=== PATIENT | male | born 1955 | race Caucasian/White ===

== ENCOUNTER 2020-02-09 01:00 | Outpatient (CLI) | payer BC, SELFPAY ==
[2020-02-09 19:09] LABS: SARS-CoV-2 RNA PCR Negative
== END 2020-02-09 01:01 | disposition home or self-care (01) ==
PROVIDERS: PCP Family Medicine; Visit Provider Internal Medicine Gastroenterology
DX: Z01.812 Encounter for preprocedural laboratory examination (principal); Z11.59 Encounter for screening for other viral diseases
CPT/HCPCS: 87635; C9803; U0003

== ENCOUNTER 2020-02-11 01:41 | Day surgery (SDC) | payer BC, SELFPAY ==
[2020-02-04 12:43] VITALS: BMI 29.9
[2020-02-11 10:40] VITALS: BP 157/91; PULSE 84; RESP 22; TEMP 36.5; O2SAT 97; BMI 30.4
[2020-02-11] MEDS: LACTATED RINGERS 1,000 ML 150 ML IV CONT (10:58)
--- NOTE | 2020-02-11 11:04 | WPDANESEPPF ---
Anes - Initial Pre Proc Eval Procedure: Operation Date: 02/11/20 12:00 Proposed Procedures p Screening Colonoscopy - Abhay James MD Date/Time: 02/11/20 11:04 Surgeon: Abhay James MD Pre Op Diagnosis: neoplasm screening Patient Data Age: 64 Gender: M Height: 6 ft Weight: 101.8 kg Last Vital Signs Temp 97.7 F 02/11/20 10:40 Pulse 84 02/11/20 10:40 Resp 22 H 02/11/20 10:40 BP 157/91 H 02/11/20 10:40 Pulse Ox 97 02/11/20 10:40 Allergies Allergy/AdvReac Type Severity Reaction Status Date / Time No Known Allergies Allergy Verified 02/11/20 10:39 Home Medications Medication Instructions Recorded Confirmed Type No Home Medications 02/04/20 02/11/20 History Patient hx anesthesia problems: none Family hx anesthesia problems: none PMFSH Past Medical History Medical History (Updated 02/11/20 @ 11:04 by Darion Mercado MD) Healthy adult Anes - Eval Final PreProcedure Day of Procedure 02/11/20 11:04 Patient weight: normal Heart: regular rate and rhythm Lungs: clear to auscultation Airway: Mallampati scale class II Neurological: alert and oriented Last oral intake: >/= 8 hours ASA classification: I Emergent: no Anesthetic plan: proceed Anesthesia type and monitoring: general GIVS and standard monitoring Informed Consent: The patient's anesthetic plan and its attendant risks and benefits were discussed with the patient/family/POA. Questions were solicited and answers provided to the satisfaction of the patient/family/POA.
--- NOTE | 2020-02-11 11:21 | PM.HPGS ---
History of Present Illness History of Present Illness Consent: Risks, benefits, and alternatives have been discussed and questions answered. Patient agrees to proceed with procedure. Chief complaint: neoplasm screening Narrative: Myra Callaway is a 64 year old W male referred for his 1st screening colonoscopy. Patient is asymptomatic. He has a family history of colon cancer in father diagnosed around age 90 and there is a paternal uncle colon cancer. [facility] Past Medical History Medical History Healthy adult Meds Home Medications and Allergies Home Medications Medication Instructions Recorded Confirmed Type No Home Medications 02/04/20 02/11/20 History Allergies Allergy/AdvReac Type Severity Reaction Status Date / Time No Known Allergies Allergy Verified 02/11/20 10:39 Vital Signs Vital Signs - 24 hr 02/11/20 10:40 Temperature 36.5 C Pulse Rate 84 Respiratory Rate 22 H Blood Pressure 157/91 H Pulse Oximetry 97 Exam Const: Orientation/consciousness: patient oriented x3 Resp: Auscultation: clear to auscultation bilaterally Cardio: Rate: regular rate Rhythm: regular rhythm Heart sounds: no murmurs GI: GI Palp: Yes Soft to palpation, No Tenderness to palpation present (GI), Yes No hepatosplenomegaly present and No Palpable mass present Auscultation: normal bowel sounds Neuro: General: patient oriented x3 and no focal motor deficits Extrem: General: no pedal edema Assessment and Plan Additional Plan screening colonoscopy in high risk patient
[2020-02-11 12:23] VITALS: BP 140/69; PULSE 73; RESP 18; O2SAT 99
[2020-02-11 12:33] VITALS: BP 132/75; PULSE 66; RESP 18; O2SAT 98
[2020-02-11 12:42] VITALS: BP 133/74; PULSE 72; RESP 18; O2SAT 98
== END 2020-02-11 12:51 | disposition home or self-care (01) ==
PROVIDERS: PCP Family Medicine; Visit Provider Internal Medicine Gastroenterology
PROC: 0DJD8ZZ Inspection of Lower Intestinal Tract, Via Natural or Artificial Opening Endoscopic (ICD-10-PCS; CPT 45378; principal; 2020-02-11 12:00)
DX: Z12.11 Encounter for screening for malignant neoplasm of colon (principal); Z80.0 Family history of malignant neoplasm of digestive organs; K64.4 Residual hemorrhoidal skin tags
CPT/HCPCS: G0105; J2704; J7120

== ENCOUNTER 2020-02-24 13:45 | Outpatient (CLI) | payer BC, SELFPAY ==
--- NOTE | ~2020-02-24 | XR_ITS ---
EXAMINATION: XR chest 2V 02/24/2020 15:43 INDICATION: Chest pain. PROCEDURE: 2 view chest COMPARISON: No prior studies for comparison. FINDINGS: The lungs are clear. The cardiomediastinal silhouette is within normal limits. There are no pleural effusions. There is no pneumothorax suspected. IMPRESSION: 1: NO ACUTE CARDIOPULMONARY DISEASE. Reviewed, dictated and finalized at location A.
--- NOTE | ~2020-02-24 | XR_ITS ---
XR shoulder RT min 2V 02/24/2020 15:43 Indication: Right shoulder pain Procedure: 4 views right shoulder Comparison: No prior studies for comparison. Findings: No fracture, subluxation or dislocation. Mild degenerative changes of the acromioclavicular joint. Visualized lung parenchyma unremarkable. No significant soft tissue abnormality. Impression: 1: Mild osteoarthritis of the acromioclavicular joint. Reviewed, dictated and finalized at location A. Impression: 1: Mild osteoarthritis of the acromioclavicular joint.
[2020-02-24 15:02] LABS: Basophils Absolute Auto 0.1 K/mm3 (0.0-0.1); Basophils Percent Auto 0.8 % (0.2-1.2); Eosinophils Absolute Auto 0.1 K/mm3 (0-0.3); Eosinophils Percent Auto 2.4 % (0-4.4); Hematocrit 44.5 % (42.0-52.0); Hemoglobin 15.3 g/dL (14.0-18.0); Immature Granulocyte Absolute 0.02 K/mm3 (0.00-0.031); Immature Granulocyte Percent A 0.3 % (0-0.5); Lymphocytes Absolute Auto 1.41 K/mm3 (0.9-3.2); Lymphocytes Percent Auto 23.9 % (18.3-44.2); Mean Corpuscular HGB Conc 34.4 g/dl (32-36); Mean Corpuscular Hemoglobin 30.3 pg (26-34); Mean Corpuscular Volume 88.1 fl (80-100); Mean Platelet Volume 9.8 fl (7.4-10.4); Monocytes Absolute Auto 0.4 K/mm3 (0.1-0.6); Monocytes Percent Auto 7.3 % (2.6-8.5); Neutrophils Absolute Auto 3.9 K/mm3 (1.3-6.7); Neutrophils Percent Auto 65.3 % (45.5-73.1); Platelet Count Result 244 k/mm3 (150-375); Red Blood Count 5.05 M/mm3 (4.6-6.20); Red Cell Distribution Width 13.5 % (11.5-14.5); White Blood Count 5.9 K/mm3 (4.5-10.0)
[2020-02-24 15:05] LABS: Add Urine Microscopic? NO; Appearance Urine Clear (Clear); Bilirubin Urine Negative (Negative); Blood Urine Negative (Negative); Color Urine Straw (Yellow); Glucose Urine UA Negative (Negative); Ketones Urine Negative (Negative); Leukocyte Esterase Ur Negative LEU/UL (NEGATIVE); Nitrate Urine Negative (Negative); Protein Urine Negative (Negative); Specific Grav Ur 1.011 (1.001-1.035); Urobilinogen Urine Negative mg/dL (<2.0)
[2020-02-24 15:17] LABS: Alanine Aminotransferase 38 U/L (4-50); Albumin Level 4.5 g/dL (3.5-5.1); Alkaline Phosphatase 70 U/L (38-126); Aspartate Amino Transferase 36 U/L (17-59); Bilirubin,Total 0.4 mg/dL (0.2-1.3); Blood Urea Nitrogen 13 mg/dL (9-20); Calcium 8.6 mg/dL (8.4-10.2); Carbon Dioxide 26 mmol/L (22-30); Chloride 105 mmol/L (98-107); Cholesterol 208 mg/dL (0-200); Estimated Glomerular Filt Rate > 60; Glucose 107 mg/dL (75-110); HDL Direct 51 mg/dL; Sodium 137 mmol/L (137-145); Triglycerides 185 mg/dL (<150)
[2020-02-24 15:29] LABS: LDL Cholesterol Direct 126 mg/dL
[2020-02-24 15:49] LABS: Prostate Specific Antigen 2.9 ng/mL (< OR = 4.0)
[2020-02-25 13:51] LABS: Hemoglobin A1C 5.5 % (<5.7)
== END 2020-02-24 13:46 | disposition home or self-care (01) ==
PROVIDERS: Visit Provider Physician Assistant
DX: Z00.00 Encounter for general adult medical examination without abnormal findings (principal); R35.1 Nocturia; I10 Essential (primary) hypertension; M19.011 Primary osteoarthritis, right shoulder
CPT/HCPCS: 36415; 71046; 73030; 80053; 80061; 81003; 83036; 84153; 84443; 85025; G0103

== ENCOUNTER 2020-10-11 13:35 | Outpatient (CLI) | payer BC, SELFPAY ==
[2020-10-11 14:16] LABS: Basophils Absolute Auto 0.1 K/mm3 (0.0-0.1); Basophils Percent Auto 0.9 % (0.2-1.2); Eosinophils Absolute Auto 0.1 K/mm3 (0-0.3); Eosinophils Percent Auto 1.7 % (0-4.4); Hematocrit 43.2 % (42.0-52.0); Hemoglobin 14.7 g/dL (14.0-18.0); Immature Granulocyte Absolute 0.02 K/mm3 (0.00-0.031); Immature Granulocyte Percent A 0.4 % (0-0.5); Lymphocytes Absolute Auto 1.39 K/mm3 (0.9-3.2); Lymphocytes Percent Auto 25.9 % (18.3-44.2); Mean Corpuscular Hemoglobin 29.5 pg (26-34); Mean Corpuscular Volume 86.7 fl (80-100); Mean Platelet Volume 9.6 fl (7.4-10.4); Monocytes Absolute Auto 0.5 K/mm3 (0.1-0.6); Monocytes Percent Auto 8.6 % (2.6-8.5); Neutrophils Absolute Auto 3.4 K/mm3 (1.3-6.7); Neutrophils Percent Auto 62.5 % (45.5-73.1); Platelet Count Result 227 k/mm3 (150-375); Red Blood Count 4.98 M/mm3 (4.6-6.20); Red Cell Distribution Width 13.3 % (11.5-14.5); White Blood Count 5.4 K/mm3 (4.5-10.0)
[2020-10-11 14:27] LABS: Hemoglobin A1C 5.5 % (<5.7)
[2020-10-11 14:45] LABS: Alanine Aminotransferase 36 U/L (4-50); Albumin Level 4.3 g/dL (3.5-5.1); Alkaline Phosphatase 81 U/L (38-126); Anion Gap 5 mmol/L (8-16); Aspartate Amino Transferase 32 U/L (17-59); Bilirubin,Total 0.4 mg/dL (0.2-1.3); Blood Urea Nitrogen 13 mg/dL (9-20); Calcium 9.4 mg/dL (8.4-10.2); Carbon Dioxide 27 mmol/L (22-30); Chloride 107 mmol/L (98-107); Cholesterol 183 mg/dL (0-200); Estimated Glomerular Filt Rate > 60; Glucose 107 mg/dL (75-110); HDL Direct 45 mg/dL; Potassium 4.1 mmol/L (3.4-5.0); Sodium 139 mmol/L (137-145); Triglycerides 152 mg/dL (<150)
[2020-10-11 14:56] LABS: LDL Cholesterol Direct 114 mg/dL
[2020-10-11 15:48] LABS: Folic Acid 8.5 ng/mL (2.76->20)
== END 2020-10-11 13:36 | disposition home or self-care (01) ==
PROVIDERS: PCP Family Medicine; Visit Provider Physician Assistant
DX: E78.5 Hyperlipidemia, unspecified (principal); I10 Essential (primary) hypertension; R07.89 Other chest pain; R53.83 Other fatigue; R73.01 Impaired fasting glucose
CPT/HCPCS: 36415; 80053; 80061; 82607; 82746; 83036; 84443; 85025

== ENCOUNTER 2021-04-10 10:03 | Outpatient (CLI) | payer BC, SELFPAY ==
--- NOTE | ~2021-04-10 | CT_ITS ---
EXAMINATION: CT sinus wo con DATE: 04/10/2021 10:24 INDICATION: Chronic sinusitis TECHNIQUE: Computed tomography (CT) of the paranasal sinuses was performed without contrast. Iterativ e reconstruction technique was employed. Exam dose: 308.46 mGy-cm total exam DLP. COMPARISON: None FINDINGS: There is leftward deviation of the nasal septum. The nasal turbinates are prominent in size, relatively symmetric. The ostiomeatal units are patent. There is mild soft tissue thickening of the ethmoid septae. There is minimal mucoperiosteal thickenin g along the medial wall of left maxillary antrum. There is opacification of a small number of inferomedial left mastoid air cells. The paranasal sinuses and mastoid air cells are otherwise normally developed and aerated. IMPRESSION: Leftward deviation of nasal septum Prominent nasal turbinates Patent ostiomeatal units Mild septal soft tissue thickening of the ethmoid septae, minimal mucoperiosteal thickening of the le ft maxillary sinus medially Reviewed, dictated and finalized at Location A. Reviewed, dictated and finalized at location A. IMPRESSION: Leftward deviation of nasal septum Prominent nasal turbinates Patent ostiomeatal units Mild septal soft tissue thickening of the ethmoid septae, minimal mucoperiostea l thickening of the left maxillary sinus medially
== END 2021-04-10 10:04 | disposition home or self-care (01) ==
LOC: ANHIMG 10:08
PROVIDERS: PCP Family Medicine; Visit Provider Otolaryngology
DX: J32.9 Chronic sinusitis, unspecified (principal); J34.2 Deviated nasal septum; J33.8 Other polyp of sinus; J30.9 Allergic rhinitis, unspecified
CPT/HCPCS: 70486

== ENCOUNTER 2021-05-11 02:31 | Day surgery (SDC) | payer BC, SELFPAY ==
[2021-05-02 13:29] VITALS: BMI 28.7
--- NOTE | 2021-05-09 06:27 | PM.HPGS ---
History of Present Illness History of Present Illness Consent: Risks, benefits, and alternatives have been discussed and questions answered. Patient agrees to proceed with procedure. Chief complaint: Nasal Septal Deviation, Hypertrophy Narrative: Myra Callaway is a 65 year old male with inability to breathe out of his nose left side is markedly deviated he has been on antibiotics and sinus medications difficulty sleeping at night Review of Systems Review of Systems: All systems reviewed & are unremarkable except as noted in HPI and below PMFSH Past Medical History Medical History Healthy adult Surgical History Surgical History History of lumbar surgery L5 Family History Family History Father Heart disease Hypertension Mother Pancreatic cancer Social History Social History Years smoked: 30 Smoking status: Current some day smoker Tobacco type: cigars Second hand tobacco smoke exposure: No Additional smoking assessment comments: OCCAS CIGAR W/ GOLFING FOR 20 YRS Alcohol intake: former Drinks per week: 2 Alcohol use details: FORMER SOCIAL Substance use: never Substance use type: does not use Living arrangements: alone Gender identity (if verbalized by the patient): Male Spiritual care concerns: No Meds Home Medications and Allergies Home Medications Medication Instructions Recorded Confirmed Type lisinopril 20 mg tablet 20 mg PO QAM #90 tablet 05/08/21 Rx omeprazole 40 mg capsule,delayed 40 mg PO QAM PRN #90 cap 05/08/21 Rx release Allergies Allergy/AdvReac Type Severity Reaction Status Date / Time No Known Allergies Allergy Verified 05/02/21 13:26 Exam Narrative: chest clear heart without murmurs abdomen soft extremities negative septum deviated to the left turbinate hypertrophy Assessment and Plan Additional Plan plan septoplasty and bilateral inferi
[2021-05-11] VITALS (9 sets, daily range): BP systolic 110–139; BP diastolic 66–91; PULSE 65–84; RESP 12–20; TEMP 36.2–36.4; O2SAT 93–98; BMI 28.7
[2021-05-11] MEDS: ACETAMINOPHEN 500 MG TABLET 1000 MG PO (09:32)
[2021-05-11] MEDS: LACTATED RINGERS 1,000 ML 30 ML IV CONT (09:53)
--- NOTE | 2021-05-11 10:46 | WPDANESEPPF ---
Anes - Initial Pre Proc Eval Procedure: Operation Date: 05/11/21 11:00 Proposed Procedures p Septoplasty - Shahzad Goldman MD s Bilateral Inferior Turbinectomy - Shahzad Goldman MD Date/Time: 05/11/21 10:46 Surgeon: Shahzad Goldman MD Pre Op Diagnosis: Nasal Septal Deviation, Hypertrophy Patient Data Age: 65 Gender: M Height: 1.83 m Weight: 96 kg Last Vital Signs Temp 36.4 C 05/11/21 09:36 Pulse 76 05/11/21 09:36 Resp 18 05/11/21 09:36 BP 139/91 H 05/11/21 09:36 Pulse Ox 98 05/11/21 09:36 Allergies Allergy/AdvReac Type Severity Reaction Status Date / Time No Known Allergies Allergy Verified 05/11/21 09:21 Home Medications Medication Instructions Recorded Confirmed Type lisinopril 20 mg tablet 20 mg PO QAM #90 tablet 05/08/21 05/11/21 Rx omeprazole 40 mg capsule,delayed 40 mg PO QAM PRN #90 cap 05/08/21 05/11/21 Rx release Patient hx anesthesia problems: none Family hx anesthesia problems: none Results Review: All pre-operative results and documents have been reviewed as part of the pre-operative evaluation. [facility] Past Medical History Medical History GERD (gastroesophageal reflux disease) Healthy adult HLD (hyperlipidemia) HTN (hypertension) Suspected sleep apnea Surgical History Surgical History History of lumbar surgery L5 Family History Family History Father Heart disease Hypertension Mother Pancreatic cancer Social History Social History Years smoked: 30 Smoking status: Current some day smoker Tobacco type: cigars Second hand tobacco smoke exposure: No Additional smoking assessment comments: OCCAS CIGAR W/ GOLFING FOR 20 YRS Alcohol intake: former Drinks per week: 2 Alcohol use details: FORMER SOCIAL Substance use: never Substance use type: does not use Living arrangements: alone Gender identity (if verbalized by the patient): Male Spiritual care concerns: No Anes - Eval Final PreProcedure Day of Procedure 05/11/21 10:46 Patient weight: overweight Heart: regular rate and rhythm Lungs: clear to auscultation Airway: Mallampati scale class II Neurological: alert and oriented Last oral intake: >/= 8 hours ASA classification: III Emergent: no Anesthetic plan: proceed Anesthesia type and monitoring: general ETT and standard monitoring Results Review: All pre-operative results and documents have been reviewed as part of the pre-operative evaluation. Informed Consent: The patient's anesthetic plan and its attendant risks and benefits were discussed with the patient/family/POA. Questions were solicited and answers provided to the satisfaction of the patient/family/POA.
--- NOTE | 2021-05-11 10:56 | WPDHPUPDATE1 ---
History and Physical Update Update Date/Time: 05/11/21 10:56 History and Physical has been reviewed, including an updated exam of the patient. There are NO changes in the patient's condition. Risks, benefits, and alternatives have been discussed and questions answered. Patient agrees to proceed with procedure.
[2021-05-11] MEDS: LIDO 1%/EPINEPHRINE 1:100,000 50 ML VIAL INFILTRATE (11:13)
[2021-05-11] MEDS: COCAINE HCL (*CRX) 4% TOP SOLN 4 ML VIAL 1 APPLIC TOPICAL (11:13)
--- NOTE | 2021-05-11 11:36 | W.PM.PROC2 ---
Procedure Note - Detailed Date of Procedure 05/11/21 Pre-op Diagnosis Nasal Septal Deviation, Hypertrophy Post-op Diagnosis same Procedure Performed Septoplasty and bilateral inferior turbinectomy Surgeon Shahzad Goldman MD Description of Procedure Patient was prepped and draped fashion anesthesia the nose packed with cocaine impregnated cottonoids injected xylocaine with adrenaline a right cintia transfix incision was made left anterior and posterior tunnels elevated the bony cartilaginous junction the right posterior elevated the bony deviation was removed as tolerated this swelling the cartilage before bony remnants of the midline a small strip of septal cartilage removal of the caudal septum both inferior turbinates were reduced in size with stab wounds in the anterior ends removal of the bone and micro debriding soft tissue incision closed with 4-0 chromic and Yeung splints sutured
== END 2021-05-11 13:30 | disposition home or self-care (01) ==
PROVIDERS: PCP Family Medicine; Visit Provider Otolaryngology
PROC: (CPT 30520; principal; 2021-05-11 11:00)
PROC: (CPT 30140; 2021-05-11 11:00)
DX: J34.2 Deviated nasal septum (principal); J34.3 Hypertrophy of nasal turbinates; I10 Essential (primary) hypertension; E78.5 Hyperlipidemia, unspecified; K21.9 Gastro-esophageal reflux disease without esophagitis; Z72.0 Tobacco use
CPT/HCPCS: 30140; 30520; A9270; J0330; J1100; J2250; J2405; J2704; J7120

== ENCOUNTER 2021-08-13 11:13 | Emergency (ER) | payer OTHER, SELFPAY ==
--- NOTE | ~2021-08-13 | CT_ITS ---
EXAMINATION: CT abdomen pelvis wo con DATE: 08/13/2021 11:47 INDICATION: Right flank pain. Nausea and vomiting. TECHNIQUE: Computed tomography (CT) of the abdomen and pelvis was performed without intravenous contr ast. The dose-length product was 906.19 mGy-cm. Automated exposure control and iterative reconstructi on technique were employed. COMPARISON: None. FINDINGS: Lung bases are unremarkable. Heart size is normal. No significant pleural or pericardial ef fusion. Small hiatal hernia. No significant vascular abnormality. No lymphadenopathy. The liver, sple en, pancreas, adrenal glands are unremarkable. There is a 2.5 cm left renal cyst. There are punctate nonobstructing right renal stones. There is moderate right hydroureteronephrosis. There is calcificat ion in the bladder near the UVJ, possibly recently passed stone or UVJ stone measuring 3 mm. Gallbladder is present. Nonobstructive bowel gas pattern. No abnormal pelvic masses or fluid collecti ons. There is levoscoliosis. There is mild osteoarthritis of the hips. Mild lumbar spondylosis. IMPRESSION: 1. Stone overlying the bladder measuring 3 mm which may represent a UVJ stone or recently passed blad odette stone. There is moderate resultant right hydroureteronephrosis. 2: Nonobstructing right nephrolithiasis. Reviewed, dictated and finalized at location A. PMENT WASHER IMPRESSION: 1. Stone overlying the bladder measuring 3 mm which may represent a UVJ stone o r recently passed bladder stone. There is moderate resultant right hydrouretero nephrosis. 2: Nonobstructing right nephrolithiasis.
[2021-08-13 11:17] VITALS: PULSE 58; RESP 22; TEMP 36.4; O2SAT 100
[2021-08-13] MEDS: SODIUM CHLORIDE 0.9% IV 1,000 ML 999 ML IV CONT (11:30)
[2021-08-13] MEDS: KETOROLAC 30 MG/ML VIAL (*BKC) IV PUSH (11:30)
[2021-08-13 11:44] LABS: Add Urine Microscopic? YES; Appearance Urine Turbid (Clear); Bilirubin Urine Negative (Negative); Blood Urine 2+ (Negative); Color Urine Amber (Yellow); Glucose Urine UA Negative (Negative); Ketones Urine Negative (Negative); Leukocyte Esterase Ur Negative LEU/UL (Negative); Mucus Urine Heavy /lpf; Nitrate Urine Negative (Negative); Protein Urine 1+ mg/dL (Negative)
[2021-08-13 11:47] LABS: Specific Grav Ur 1.033 (1.001-1.035)
--- NOTE | 2021-08-13 11:50 | ED.ABDPAIN ---
HPI - Abdominal Pain General Chief Complaint: Back Pain/Injury Stated Complaint: back pian, n.v, urgency Time Seen by Provider: 08/13/21 11:24 Source: patient Mode of arrival: EMS Limitations: no limitations History of Present Illness HPI narrative: Patient is a 65-year-old male complaining of right flank pain, sharp, 9 out of 10, radiating to right groin accompanied by nausea and dysuria that started this morning. Patient was given 4 mg morphine and 4 of Zofran by EMS, still having pain. Patient denies any chest pain, shortness of breath, vomiting, diarrhea, fever or chills. Related Data Allergies Allergy/AdvReac Type Severity Reaction Status Date / Time No Known Allergies Allergy Verified 06/01/21 14:33 Review of Systems Review of Systems: All systems reviewed & are unremarkable except as noted in HPI and below Constitutional: Constitutional: Denies body ache(s), Denies chills, Denies excessive sweating, Denies fatigue, Denies fever(s), Denies headache(s), Denies lethargy, Denies malaise, Denies weakness and Denies weight loss Eyes: Eyes: Denies blurry vision, Denies change in vision and Denies loss of vision ENT: Denies dizziness, Denies ear discharge, Denies headache(s), Denies lip swelling, Denies epistaxis, Denies nasal congestion, Denies neck pain, Denies throat swelling and Denies tongue swelling Cardiovascular: Cardiovascular: Denies chest pain, Denies chest pain at rest, Denies chest pain with activity, Denies diaphoresis, Denies rapid heart rate, Denies edema, Denies irregular heart rhythm, Denies lightheadedness, Denies palpitations, Denies dyspnea and Denies dyspnea on exertion Respiratory: Respiratory: Denies chest congestion, Denies cough, Denies hemoptysis, Denies dyspnea and Denies dyspnea on exertion Gastrointestinal: Gastrointestinal: Denies abdominal pain, Denies melena, Denies hematochezia, Denies diarrhea, Denies vomiting and Denies hematemesis Musculoskeletal: Musculoskeletal: Denies abnormal gait, Denies deformity, Denies joint swelling, Denies limited range of motion, Denies neck pain and Denies numbness Neurologic: Denies Abnormal speech present, Denies abnormal gait, Denies confusion, Denies dizziness, Denies headache(s), Denies focal weakness, Denies loss of vision, Denies numbness, Denies Other visual disturbances, Denies Sensory deficit (Neuro) and Denies weakness Psychiatric: Psychiatric: Denies confusion, Denies depression, Denies auditory hallucinations, Denies homicidal ideation and Denies suicidal ideation Endocrine: Endocrine: Denies cold intolerance, Denies excessive sweating, Denies fatigue, Denies heat intolerance and Denies palpitations Hematologic/Lymphatic: Hematologic/Lymphatic: Denies easy bleeding and Denies easy bruising Allergic/Immunologic: Allergic/Immunologic: Denies lip swelling, Denies throat swelling and Denies tongue swelling PMFSH Past Medical History Medical History GERD (gastroesophageal reflux disease) Healthy adult HLD (hyperlipidemia) HTN (hypertension) Suspected sleep apnea Surgical History Surgical History History of lumbar surgery L5 Family History Family History Father Heart disease Hypertension Mother Pancreatic cancer Social History Social History Years smoked: 30 Smoking status: Light tobacco smoker Tobacco type: cigars Second hand tobacco smoke exposure: No Additional smoking assessment comments: OCCAS CIGAR W/ GOLFING FOR 20 YRS Alcohol intake: former Drinks per week: 2 Alcohol use details: FORMER SOCIAL Substance use: never Substance use type: does not use Gender identity (if verbalized by the patient): Male Spiritual care concerns: No Exam Const: General: cooperative, healthy appearing, c
[2021-08-13 12:28] LABS: Hematocrit 44.6 % (42.0-52.0); Mean Corpuscular HGB Conc 33.6 g/dl (32-36); Mean Corpuscular Hemoglobin 30.6 pg (26-34); Mean Platelet Volume 9.6 fl (7.4-10.4); Platelet Count Result 214 k/mm3 (150-375); Red Cell Distribution Width 13.8 % (11.5-14.5); White Blood Count 10.4 K/mm3 (4.5-10.0)
[2021-08-13 12:38] LABS: Alanine Aminotransferase 31 U/L (4-50); Albumin Level 4.6 g/dL (3.5-5.1); Alkaline Phosphatase 83 U/L (38-126); Anion Gap 6 mmol/L (8-16); Aspartate Amino Transferase 39 U/L (17-59); Bilirubin,Total 0.3 mg/dL (0.2-1.3); Blood Urea Nitrogen 20 mg/dL (9-20); Calcium 9.1 mg/dL (8.4-10.2); Carbon Dioxide 28 mmol/L (22-30); Chloride 108 mmol/L (98-107); Estimated CRCL calculation 55 ml/min; Estimated Glomerular Filt Rate 55; Glucose 120 mg/dL (65-110); Lipase 155 U/L (23-300); Potassium 4.5 mmol/L (3.4-5.0); Sodium 142 mmol/L (137-145)
[2021-08-13 12:42] LABS: Band Neutrophils Percent 10 % (0-6); Lymphocytes Absolute Manual 0.52 K/mm3 (1.1-4.5); Monocytes Absolute Manual 0.41 K/mm3 (0.1-0.90); Monocytes Percent Manual 4 % (3-9); Neutrophils Absolute Manual 9.46 K/mm3 (1.3-6.7); Neutrophils Percent Manual 81 % (46-73); Platelet Estimate Adequate (Adequate); Total Cells Counted 100
[2021-08-13 12:56] VITALS: BP 136/89; PULSE 64; RESP 18; O2SAT 100
[2021-08-13] MEDS: TAMSULOSIN HCL 0.4 MG CAPSULE PO (13:02)
[2021-08-13 14:14] VITALS: BP 120/64; PULSE 62; RESP 17; O2SAT 99
== END 2021-08-13 14:55 | disposition home or self-care (01) ==
PROVIDERS: Physician Assistant; Emergency Provider Emergency Medicine; PCP Family Medicine
DX: N13.2 Hydronephrosis with renal and ureteral calculous obstruction (principal); K21.9 Gastro-esophageal reflux disease without esophagitis; E78.5 Hyperlipidemia, unspecified; I10 Essential (primary) hypertension; F17.290 Nicotine dependence, other tobacco product, uncomplicated
CPT/HCPCS: 36415; 74176; 80053; 81001; 83690; 85025; 87086; 96361; 96374; 99284; A9270; J1885; J7030

== ENCOUNTER 2021-09-29 14:20 | Outpatient (CLI) | payer OTHER, SELFPAY ==
[2021-09-29 14:41] LABS: Basophils Percent Auto 0.4 % (0.2-1.2); Eosinophils Absolute Auto 0.1 K/mm3 (0-0.3); Eosinophils Percent Auto 0.9 % (0-4.4); Hematocrit 41.3 % (42.0-52.0); Hemoglobin 13.9 g/dL (14.0-18.0); Immature Granulocyte Absolute 0.03 K/mm3 (0.00-0.031); Immature Granulocyte Percent A 0.4 % (0-0.5); Lymphocytes Absolute Auto 1.34 K/mm3 (0.9-3.2); Lymphocytes Percent Auto 19.2 % (18.3-44.2); Mean Corpuscular HGB Conc 33.7 g/dl (32-36); Mean Corpuscular Hemoglobin 30.6 pg (26-34); Mean Platelet Volume 9.9 fl (7.4-10.4); Monocytes Absolute Auto 0.5 K/mm3 (0.1-0.6); Monocytes Percent Auto 7.2 % (2.6-8.5); Neutrophils Percent Auto 71.9 % (45.5-73.1); Platelet Count Result 218 k/mm3 (150-375); Red Blood Count 4.54 M/mm3 (4.6-6.20)
[2021-09-29 14:50] LABS: Add Urine Microscopic? NO; Appearance Urine Clear (Clear); Bilirubin Urine Negative (Negative); Blood Urine Negative (Negative); Color Urine Straw (Yellow); Glucose Urine UA Negative (Negative); Ketones Urine Negative (Negative); Leukocyte Esterase Ur Negative LEU/UL (NEGATIVE); Nitrate Urine Negative (Negative); Protein Urine Negative (Negative); Urobilinogen Urine Negative mg/dL (<2.0)
[2021-09-29 14:58] LABS: Specific Grav Ur 1.003 (1.001-1.035)
[2021-09-29 16:39] LABS: Alanine Aminotransferase 26 U/L (4-50); Albumin Level 4.4 g/dL (3.5-5.1); Alkaline Phosphatase 66 U/L (38-126); Anion Gap 7 mmol/L (8-16); Aspartate Amino Transferase 37 U/L (17-59); Bilirubin,Total 0.4 mg/dL (0.2-1.3); Blood Urea Nitrogen 17 mg/dL (9-20); Calcium 9.2 mg/dL (8.4-10.2); Carbon Dioxide 27 mmol/L (22-30); Chloride 104 mmol/L (98-107); Cholesterol 167 mg/dL (0-200); Estimated Glomerular Filt Rate > 60; Glucose 104 mg/dL (65-110); HDL Direct 42 mg/dL; Potassium 4.2 mmol/L (3.4-5.0); Sodium 138 mmol/L (137-145); Triglycerides 72 mg/dL (<150)
[2021-09-29 16:50] LABS: LDL Cholesterol Direct 93 mg/dL
[2021-09-29 17:09] LABS: Prostate Specific Antigen 3.2 ng/mL (< OR = 4.0)
[2021-09-29 17:29] LABS: Hemoglobin A1C 5.2 % (<5.7)
== END 2021-09-29 14:21 | disposition home or self-care (01) ==
LOC: ANHLAB 14:23
PROVIDERS: PCP Family Medicine; Visit Provider Physician Assistant
DX: E78.5 Hyperlipidemia, unspecified (principal); I10 Essential (primary) hypertension; K21.9 Gastro-esophageal reflux disease without esophagitis; R35.1 Nocturia; R73.01 Impaired fasting glucose
CPT/HCPCS: 36415; 80053; 80061; 81003; 83036; 84153; 84443; 85025

== ENCOUNTER 2022-01-17 10:15 | Outpatient (CLI) | payer OTHER, SELFPAY | END 2022-01-17 10:16 | disposition home or self-care (01) | LOC: ANHAUDASC 10:16 | PROVIDERS: PCP Family Medicine; Visit Provider Otolaryngology | DX: H90.3 Sensorineural hearing loss, bilateral (principal) | CPT/HCPCS: 92557; 92567 ==

== ENCOUNTER 2022-04-20 14:43 | Outpatient (CLI) | payer OTHER, SELFPAY ==
[2022-04-20 15:01] LABS: Basophils Absolute Auto 0.1 K/mm3 (0.0-0.1); Basophils Percent Auto 0.9 % (0.2-1.2); Eosinophils Absolute Auto 0.6 K/mm3 (0-0.3); Eosinophils Percent Auto 10.1 % (0-4.4); Hematocrit 42.2 % (42.0-52.0); Hemoglobin 13.9 g/dL (14.0-18.0); Immature Granulocyte Absolute 0.01 K/mm3 (0.00-0.031); Immature Granulocyte Percent A 0.2 % (0-0.5); Lymphocytes Absolute Auto 1.52 K/mm3 (0.9-3.2); Lymphocytes Percent Auto 26.9 % (18.3-44.2); Mean Corpuscular HGB Conc 32.9 g/dl (32-36); Mean Corpuscular Hemoglobin 30.9 pg (26-34); Mean Corpuscular Volume 93.8 fl (80-100); Mean Platelet Volume 9.5 fl (7.4-10.4); Monocytes Absolute Auto 0.5 K/mm3 (0.1-0.6); Neutrophils Absolute Auto 3.1 K/mm3 (1.3-6.7); Neutrophils Percent Auto 53.9 % (45.5-73.1); Platelet Count Result 207 k/mm3 (150-375); Red Cell Distribution Width 14.3 % (11.5-14.5); White Blood Count 5.7 K/mm3 (4.5-10.0)
[2022-04-20 16:23] LABS: Folic Acid > 20.0 ng/mL (2.76->20)
[2022-04-20 16:48] LABS: Iron 97 ug/dL (49-181)
[2022-04-20 16:57] LABS: Percent Iron Saturation 30 % (20-50)
== END 2022-04-20 14:44 | disposition home or self-care (01) ==
LOC: ANHLAB 14:45
PROVIDERS: PCP Family Medicine; Visit Provider Physician Assistant
DX: D64.9 Anemia, unspecified (principal)
CPT/HCPCS: 36415; 82607; 82728; 82746; 83540; 83550; 85025

== ENCOUNTER 2022-08-07 12:44 | Outpatient (CLI) | payer OTHER, SELFPAY ==
[2022-08-07 13:16] LABS: Basophils Absolute Auto 0.1 K/mm3 (0.0-0.1); Basophils Percent Auto 1.2 % (0.2-1.2); Eosinophils Absolute Auto 0.1 K/mm3 (0-0.3); Eosinophils Percent Auto 2.2 % (0-4.4); Hematocrit 42.9 % (42.0-52.0); Immature Granulocyte Absolute 0.01 K/mm3 (0.00-0.031); Immature Granulocyte Percent A 0.2 % (0-0.5); Lymphocytes Absolute Auto 1.39 K/mm3 (0.9-3.2); Lymphocytes Percent Auto 27.8 % (18.3-44.2); Mean Corpuscular HGB Conc 32.6 g/dl (32-36); Mean Corpuscular Hemoglobin 30.8 pg (26-34); Mean Corpuscular Volume 94.3 fl (80-100); Mean Platelet Volume 9.9 fl (7.4-10.4); Monocytes Absolute Auto 0.4 K/mm3 (0.1-0.6); Monocytes Percent Auto 8.6 % (2.6-8.5); Platelet Count Result 179 k/mm3 (150-375); Red Blood Count 4.55 M/mm3 (4.6-6.20)
== END 2022-08-07 12:45 | disposition home or self-care (01) ==
PROVIDERS: PCP Family Medicine; Visit Provider Physician Assistant
DX: D64.9 Anemia, unspecified (principal)
CPT/HCPCS: 36415; 85025

== ENCOUNTER 2023-04-30 14:47 | Outpatient (CLI) | payer OTHER, SELFPAY ==
[2023-04-30 16:33] LABS: Hematocrit 42.5 % (42.0-52.0); Hemoglobin 14.2 g/dL (14.0-18.0); Mean Corpuscular HGB Conc 33.4 g/dl (32-36); Mean Corpuscular Hemoglobin 30.9 pg (26-34); Mean Corpuscular Volume 92.4 fl (80-100); Mean Platelet Volume 9.7 fl (7.4-10.4); Platelet Count Result 185 k/mm3 (150-375); Red Cell Distribution Width 13.3 % (11.5-14.5); White Blood Count 5.4 K/mm3 (4.5-10.0)
[2023-04-30 16:41] LABS: Appearance Urine Clear (Clear); Bacteria Urine None Seen /hpf; Bilirubin Urine Negative (Negative); Blood Urine Negative (Negative); Color Urine Yellow (Yellow); Glucose Urine UA Negative (Negative); Ketones Urine Negative (Negative); Leukocyte Esterase Ur Trace LEU/UL (NEGATIVE); Nitrate Urine Negative (Negative); Non Pathogenic Casts 0-2; Protein Urine Negative (Negative); RBC Urine 0-2 /hpf (0-2); Specific Grav Ur 1.024 (1.001-1.035); Squamous Epithelial Cell Urine None seen /hpf (Few); Urobilinogen Urine 0.2 mg/dL (<2.0); WBC Urine 0-5 /hpf (0-3)
[2023-04-30 16:46] LABS: Hemoglobin A1C 5.1 % (<5.7)
[2023-04-30 16:50] LABS: Add Urine Microscopic? YES
[2023-04-30 16:58] LABS: Alanine Aminotransferase 20 U/L (6-50); Albumin Level 4.1 g/dL (3.5-5.1); Alkaline Phosphatase 60 U/L (38-126); Anion Gap 3 mmol/L (8-16); Aspartate Amino Transferase 27 U/L (17-59); Bilirubin,Total 0.5 mg/dL (0.2-1.3); Blood Urea Nitrogen 16 mg/dL (9-20); Calcium 8.9 mg/dL (8.4-10.2); Carbon Dioxide 31 mmol/L (22-30); Chloride 105 mmol/L (98-107); Cholesterol 166 mg/dL (0-200); Estimated Glomerular Filt Rate > 60; Glucose 90 mg/dL (65-110); HDL Direct 63 mg/dL; Potassium 3.8 mmol/L (3.4-5.0); Sodium 139 mmol/L (137-145); Triglycerides 47 mg/dL (<150)
[2023-04-30 17:16] LABS: LDL Cholesterol Direct 85 mg/dL
== END 2023-04-30 14:48 | disposition home or self-care (01) ==
LOC: ANHLAB 14:48
PROVIDERS: PCP Family Medicine; Visit Provider Physician Assistant
DX: Z00.00 Encounter for general adult medical examination without abnormal findings (principal); I10 Essential (primary) hypertension; K21.9 Gastro-esophageal reflux disease without esophagitis; E78.5 Hyperlipidemia, unspecified; R73.01 Impaired fasting glucose; Z12.5 Encounter for screening for malignant neoplasm of prostate
CPT/HCPCS: 36415; 80053; 80061; 81001; 83036; 84153; 84443; 85027; G0103

== ENCOUNTER 2024-05-05 14:55 | Outpatient (CLI) | payer OTHER, SELFPAY ==
--- NOTE | ~2024-05-05 | XR_ITS ---
Right Hand Technique: PA, oblique, and lateral views were obtained. Clinical History: Pain Findings: No acute fracture or dislocation is seen. Osseous alignment is anatomic. There is mild dege nerative change of the first MCP joint. Minimal degenerative changes and DIP joints noted. Soft tissu es are unremarkable. Impression: Mild degenerative changes, as above. Reviewed, dictated and finalized at location M. Impression: Mild degenerative changes, as above.
--- NOTE | ~2024-05-05 | XR_ITS ---
Right Shoulder Technique: AP and scapular Y views were obtained. Clinical History: Chronic pain COMPARISON: 02/24/2020 Findings: No fracture or dislocation is seen. Osseous alignment is anatomic. The glenohumeral joint i s intact. Stable mild degenerative change at the AC joint. Soft tissues are unremarkable. Impression: Stable mild degenerative change at the AC joint. Reviewed, dictated and finalized at location . Impression: Stable mild degenerative change at the AC joint.
[2024-05-05 15:37] LABS: Basophils Percent Auto 0.8 % (0.2-1.2); Eosinophils Absolute Auto 0.1 K/mm3 (0-0.3); Eosinophils Percent Auto 1.5 % (0-4.4); Hematocrit 42.9 % (42.0-52.0); Hemoglobin 14.2 g/dL (14.0-18.0); Immature Granulocyte Absolute 0.01 K/mm3 (0.00-0.031); Immature Granulocyte Percent A 0.2 % (0-0.5); Lymphocytes Absolute Auto 1.41 K/mm3 (0.9-3.2); Lymphocytes Percent Auto 26.8 % (18.3-44.2); Mean Corpuscular HGB Conc 33.1 g/dl (32-36); Mean Corpuscular Hemoglobin 30.5 pg (26-34); Mean Corpuscular Volume 92.3 fl (80-100); Monocytes Absolute Auto 0.4 K/mm3 (0.1-0.6); Monocytes Percent Auto 7.4 % (2.6-8.5); Neutrophils Absolute Auto 3.3 K/mm3 (1.3-6.7); Neutrophils Percent Auto 63.3 % (45.5-73.1); Platelet Count Result 176 k/mm3 (150-375); Red Blood Count 4.65 M/mm3 (4.6-6.20); Red Cell Distribution Width 13.8 % (11.5-14.5); White Blood Count 5.3 K/mm3 (4.5-10.0)
[2024-05-05 15:41] LABS: Add Urine Microscopic? YES; Appearance Urine Clear (Clear); Bacteria Urine None Seen /hpf; Bilirubin Urine Negative (Negative); Blood Urine Negative (Negative); Color Urine Yellow (Yellow); Glucose Urine UA Negative (Negative); Ketones Urine 1+ mg/dL (Negative); Leukocyte Esterase Ur Trace LEU/UL (Negative); Nitrate Urine Negative (Negative); Non Pathogenic Casts 0-2; Protein Urine Negative (Negative); RBC Urine 0-2 /hpf (0-2); Specific Grav Ur 1.023 (1.001-1.035); Squamous Epithelial Cell Urine None Seen /hpf (Few); Urobilinogen Urine 0.2 mg/dL (<2.0); WBC Urine 0-5 /hpf (0-3); pH Urine 5.5 (5.0-9.0)
[2024-05-05 15:55] LABS: Alanine Aminotransferase 16 U/L (6-50); Albumin Level 4.4 g/dL (3.5-5.1); Anion Gap 6 mmol/L (4-12); Aspartate Amino Transferase 25 U/L (17-59); Bilirubin,Total 0.7 mg/dL (0.2-1.3); Blood Urea Nitrogen 14 mg/dL (9-20); Calcium 8.8 mg/dL (8.4-10.2); Carbon Dioxide 31 mmol/L (22-30); Chloride 103 mmol/L (98-107); Cholesterol 174 mg/dL (0-200); Estimated Glomerular Filt Rate > 60; Glucose 87 mg/dL (65-110); HDL Direct 57 mg/dL; Potassium 3.8 mmol/L (3.4-5.0); Sodium 140 mmol/L (137-145); Triglycerides 85 mg/dL (<150)
[2024-05-05 15:59] LABS: LDL Cholesterol Direct 82 mg/dL
[2024-05-05 16:18] LABS: Prostate Specific Antigen 5.5 ng/mL (< OR = 4.0)
[2024-05-05 17:17] LABS: Alkaline Phosphatase 66 U/L (38-126)
[2024-05-05 17:21] LABS: Hemoglobin A1C 5.3 % (<5.7)
== END 2024-05-05 14:56 | disposition home or self-care (01) ==
PROVIDERS: PCP Family Medicine; Visit Provider Physician Assistant
DX: E78.5 Hyperlipidemia, unspecified (principal); I10 Essential (primary) hypertension; R00.1 Bradycardia, unspecified; R03.0 Elevated blood-pressure reading, without diagnosis of hypertension; R53.83 Other fatigue; R73.01 Impaired fasting glucose; Z00.00 Encounter for general adult medical examination without abnormal findings; Z12.5 Encounter for screening for malignant neoplasm of prostate; E66.3 Overweight; M19.011 Primary osteoarthritis, right shoulder; M19.041 Primary osteoarthritis, right hand
CPT/HCPCS: 36415; 73030; 73130; 80053; 80061; 81001; 83036; 84153; 84443; 85025; G0103

== ENCOUNTER 2024-09-23 12:06 | Outpatient (CLI) | payer OTHER, SELFPAY ==
--- OUTSIDE RECORDS SUMMARY | 2024-09-23 13:48 | XMS_ITS | Referral Summary ---
Author Organization [facility] Address [address] [place] [address] Care Team Providers Care Hand Thermal Cutter Name Role Phone Kem Meléndez MD Primary Care Provider Encounters Date Type Department Care Team Description 09/14/2024 3:50 PM CALIBRATION ENGINEER - 09/14/2024 11:59 PM CALIBRATION ENGINEER Hospital Encounter [facility] [address] [place], [place] [id number] Discharge Disposition: Discharge to home or self care 09/14/2024 Orders Only [facility] ([facility]) - [facility] [address] [facility] [address] [place] [address] [place] [id number] Leann Tinsley RMA Research exam (Primary Dx); Elevated PSA 08/27/2024 2:00 PM CALIBRATION ENGINEER Office Visit [facility]rology [address] [facility] [address] [place] [address] Armen George MD Elevated PSA (Primary Dx); Abnormal findings on diagnostic imaging of other abdominal regions, including retroperitoneum; Elevated prostate specific antigen (PSA) from Last 3 Months Allergies Active Allergy Reactions Criticality Noted Date Comments Opioids - Morphine Analogues Agitation Low 019 Medications ibuprofen (ADVIL,MOTRIN) 200 mg tab/cap Take by mouth every 6 (six) hours as needed for pain Active predniSONE (DELTASONE) 20 mg tabletIndication s:Chronic low back pain, unspecified back pain laterality, with sciatica presence unspecified,Lumb ar herniated disc Take 3 tabs daily x 3 days Take 2 tabs daily x 3 days Take 1 tab daily x 3 days 18 tablet 02/25/2019 Active Active Problems Problem Noted Date Diagnosed Date Elevated PSA 09/14/2024 Social History Tobacco Use Types Packs/Day Years Used Date Smoking Tobacco: Some Days Cigars Smokeless Tobacco: Never Alcohol Use Standard Drinks/Week Comments Yes 0 (1 standard drink = 0.6 oz pur e alcohol) Sex and Gender Information Value Date Recorded Sex Assigned at Not on file Legal Sex Male 12:21 AM CALIBRATION ENGINEER Gender Identity Male 08/19/2024 3:09 PM CALIBRATION ENGINEER Sexual Orientation Straight 08/19/2024 3: 09 PM CALIBRATION ENGINEER Last Filed Vital Signs Vital Sign Reading Time Taken Comments Blood Pressure 153/84 08/27/2024 1:59 PM CALIBRATION ENGINEER Pulse 68 08/27/2024 1:59 PM CALIBRATION ENGINEER Temperature - - Respiratory Rate - - Oxygen Saturation 95% 08/27/2024 1:59 PM CALIBRATION ENGINEER Inhaled Oxygen Concentration - - Weight 80.3 kg (177 lb) 08/27/2024 1:59 PM CALIBRATION ENGINEER Height 182.9 cm (6') 08/27/2024 1:59 PM CALIBRATION ENGINEER Body Mass Index 24.01 08/27/2024 1:59 PM CALIBRATION ENGINEER Plan of Treatment Upcoming Encounters Date Type Department Care Team (Latest Contact Info) Description 11/04/2024 2:00 PM CDT Hospital Encounter [facility] Operating Room [address] [place] [address] Armne George MD [address] [facility] [place] [address] 11/04/2024 2:00 PM CDT - 11/04/2024 3:08 PM CDT Surgery [facility] Operating [address] [place] [address] Armen George MD [address] [facility] [place] [address] BIOPSY PROSTATE - TRANSPERINEAL Scheduled Procedures Name Priority Associated Diagnoses Date/Ti me BIOPSY PROSTATE - TRANSPERINEAL Elevated PSA 11/04/2024 2:00 PM CDT Procedures Procedure Name Priority Date/Time Associated Diagnosis Comments MR BODY OUTSIDE REFERENCE Routine 09/14/2024 3:50 PM CALIBRATION ENGINEER from Last 3 Months Results * MR Body Outside Reference (09/14/2024 3:50 PM CALIBRATION ENGINEER) Impressions [facility] - 09/14/2024 3:50 PM CALIBRATION ENGINEER These images are for Reference purposes only and have not been reviewed by [facility] Radiology. There will be no report generated by a [facility] Radiologist. Narrative [facility] - 09/14/2024 3:50 PM CALIBRATION ENGINEER EXAMINATION: Images For Reference Purposes Only Armen George MD IMG MRI PROCEDURES Fi nal Result [facility] from Last 3 Months Insurance [facility] [employer] CHO[employer] PPO Care Teams Hand Thermal Cutter Relationship Specialty Start Date End Date Kem Meléndez MD [address] [place], [place] [id number] PCP - General Family Medicine 10/11/20
--- OUTSIDE RECORDS SUMMARY | 2024-09-23 13:48 | XMS_ITS | Clinical Summary ---
Author Organization [facility] Orthopedic [facility] Address [address] [place] [address] Care Team Providers Care Precision Devices Inspector/Tester Name Role Phone Kem Meléndez MD Primary Care Provider Allergies Active Allergy Reactions Criticality Noted Date [...] Noted Date Diagnosed Date Elevated PSA 09/14/2024 Encounters Date Type Department Care Team Description 09/14/2024 3:50 PM FACILITY COORDINATOR - 09/14/2024 11:59 PM FACILITY COORDINATOR Hospital Encounter [facility] [address] [place] [address] Discharge Disposition: Discharge to home or self care 09/14/2024 Orders Only [facility] - [facility] [address] [facility] 11th [place] [address] [place] [id number] Leann Tinsley RMA Research exam (Primary Dx); Elevated PSA 08/27/2024 2:00 PM FACILITY COORDINATOR Office Visit [facility] [address] [facility] [address] [place] [phone] Armen George MD Elevated PSA (Primary Dx); Abnormal findings on diagnostic imaging of other abdominal regions, including retroperitoneum; Elevated prostate specific antigen (PSA) from Last 3 Months Surgical History Surgery Date Site/Laterality Comments BACK SURGERY Family History Medical History Relation Name Comments Lung cancer Other 1 Family history of Cancer -lung; Stroke Other 2 Family history of Stroke; Heart disease Other 3 Family history of Heart disease; Relation Name Status Comments Other 1 Other 2 Other 3 Social History Tobacco Use Types Packs/Day Years Used Date Smoking Tobacco: Some Days Cigars Smokeless Tobacco: Never Alcohol Use Standard Drinks/Week Comments Yes 0 (1 standard drink = 0.6 oz pur e alcohol) Sex and Gender Information Value Date Recorded Sex Assigned at Not on file Legal Sex Male 12:21 AM FACILITY COORDINATOR Gender Identity Male 08/19/2024 3:09 PM FACILITY COORDINATOR Sexual Orientation Straight 08/19/2024 3: 09 PM FACILITY COORDINATOR Obstetrics History Last Filed Vital Signs Vital Sign Reading Time Taken Comments Blood Pressure 153/84 08/27/2024 1:59 PM FACILITY COORDINATOR Pulse 68 08/27/2024 1:59 PM FACILITY COORDINATOR Temperature - - Respiratory Rate - - Oxygen Saturation 95% 08/27/2024 1:59 PM FACILITY COORDINATOR Inhaled Oxygen Concentration - - Weight 80.3 kg (177 lb) 08/27/2024 1:59 PM FACILITY COORDINATOR Height 182.9 cm (6') 08/27/2024 1:59 PM FACILITY COORDINATOR Body Mass Index 24.01 08/27/2024 1:59 PM FACILITY COORDINATOR Plan of Treatment Upcoming Encounters Date Type Department Care Team (Latest Contact Info) Description 11/04/2024 2:00 PM CDT Hospital Encounter [facility] [address] [place] [phone] Armen George MD [address] [place] [address] 11/04/2024 2:00 PM CDT - 11/04/2024 3:08 PM CDT Surgery [facility] [address] [place] [address] Armen George MD [address] [place] [address] BIOPSY PROSTATE - TRANSPERINEAL Scheduled Procedures Name Priority Associated Diagnoses Date/Ti me BIOPSY PROSTATE - TRANSPERINEAL Elevated PSA 11/04/2024 2:00 PM CDT Health Maintenance Due Date Last Done Comments Colon Cancer Screening-Colonoscopy 1954 Depression Screening 1954 Fall Risk Assessment 1954 Hepatitis C Screening 1954 Hepatitis B Screening 1972 Abdominal Aortic Aneurysm (A AA) Screen 2019 Well Visit 65+ 2019 Pneumococcal vaccine 65+ (2 of 2 - PCV) 04/01/2021 04/01/2020 Influenza Vaccine (#1) 2024 1, 04/01/2020, 05/07/2019, Additional history exists DTaP/Tdap/Td Vaccine (3 - Td or Tdap) 06/01/2030 06/01/2020, 11/17/2016 Zoster Vaccine Completed 06/01/2020, 04/01/2020 Procedures Procedure Name Priority Date/Time Associated Diagnosis Comments MR BODY OUTSIDE REFERENCE Routine 09/14/2024 3:50 PM FACILITY COORDINATOR from Last 3 Months Results * MR Body Outside Reference (09/14/2024 3:50 PM FACILITY COORDINATOR) Impressions [facility] - 09/14/2024 3:50 PM FACILITY COORDINATOR These images are for Reference purposes only and have not been reviewed by [facility]. There will be no report generated by a [facility] Radiologist. Narrative [facility] - 09/14/2024 3:50 PM FACILITY COORDINATOR EXAMINATION: Images For Reference Purposes Only us Armen George MD IMG MRI PROCEDURES Fi nal Result [facility] from Last 3 Months Insurance [facility] ADVANTAGE CHOICE PPO Care Teams Precision Devices Inspector/Tester Relationship Specialty Start Date End Date Kem Meléndez MD [address] [facility] [address] [place] [address] PCP - General Family Medicine 10/11/20
--- NOTE | 2024-10-14 10:12 | WPDHOMESLEEP ---
Sleep Study - Home Unattended Date of Study: 09/23/24 Ordering Provider: ANDREW Underwood Interpreting Provider: Allegra Beltran, DO Home Sleep Study Type: Watch PAT Height: 1.83 m Weight: 75.75 kg Body Mass Index: 22.6 Neck Circumference (inches): 14.5 Reva: 11 Reason for Sleep Study Daytime hypersomnia Sleep History The patient is a 69-year-old male that had a sleep study ordered by the pulmonary group for evaluation of sleep apnea. The patient occasionally awakens from sleep short of breath. He denies awakening at night with heartburn, belching or cough. He constantly snores. He occasionally has trouble sleeping when he has a cold. He occasionally wakes up gasping for air throughout the night. He occasionally has breathing problems at night observed by himself or others. He rarely sweats excessively at night. He rarely has heart palpitations or irregular heartbeats during the night. He occasionally falls asleep during the day but never while driving. He denies sleep paralysis, cataplexy and hypnagogic/ hypnopompic hallucinations. He denies having trouble at school or work due to sleepiness. He denies feeling afraid of going to sleep. He rarely has nightmares. He rarely remembers his dreams. He denies having thoughts racing through his mind. He denies feeling sad, depressed and anxious. He rarely has muscular tension. He denies noticing parts of his body jerk. He rarely kicks during the night. He rarely has crawling and aching feelings in his legs but frequently has leg pain during the night. He constantly grinds his teeth during sleep but rarely awakens with morning jaw pain. He is rarely bothered by pain during the day and is rarely awakened by pain during the night. He rarely wakes up feeling stiff in the morning. He rarely wakes up with sore or achy muscles. He rarely wakes up with pain in the neck, spine and other joints. He goes to bed between 11:00 p.m. to midnight on both weekdays and weekends. It takes him 15-45 minutes to fall asleep. He wakes up 5-6 times throughout the night for unknown reasons and it can take 15-30 minutes to fall back asleep. He wakes up between 6-9 a.m. on both weekdays and weekends. He typically gets 6-8 hours of sleep per night. He will stay in bed for 15-20 minutes after waking up in the morning. He currently lives alone he denies consuming any caffeinated beverages within 2 hours of bedtime. He denies engaging in physical exercise before bedtime. He denies reading before falling asleep. He will watch television before falling asleep. He will take naps in afternoon or the evening but they are not refreshing. He consumes 2 caffeinated beverages per day. He quit smoking cigarettes 2 years ago. He denies alcohol and recreational drug use. [facility] Past Medical History Medical History Nephrolithiasis Suspected sleep apnea GERD (gastroesophageal reflux disease) HLD (hyperlipidemia) Healthy adult HTN (hypertension) Surgical History Surgical History History of lumbar surgery L5 Family History Family History Father Heart disease Hypertension Mother Pancreatic cancer Social History Social History Years smoked: 20 Smoking status: Former smoker Tobacco type: cigars Second hand tobacco smoke exposure: No Additional smoking assessment comments: OCCAS CIGAR W/ GOLFING FOR 20 YRS Alcohol intake: former Drinks per week: 2 Alcohol use details: FORMER SOCIAL Substance use: never Substance use type: does not use Do You Feel Safe in your Home?: Yes Lack of Transportation: No Lack of Food: Never True Current Housing: I Have Housing Concerned About Future Housing: No Difficulty Paying Gas/Electric Bills: No Difficulty Paying for Meds: No Currently Unemployed: No Education: Don't Know Difficulty w/ Childcare or Family Care: No Living arrangements: alone Occupation/Education: occupation Gender identity (if verbalized by the patient): Male Sexual Orientation (if Verbalized by the Patient): Straight or Heterosexual Spiritual care concerns: No Medications Home Medications ?Medication ?Instructions ?Recorded ?Confirmed ?Type meloxicam 7.5 mg tablet 7.5 mg PO DAILY PRN pain #90 tabs 08/13/24 10/09/24 Rx Sleep Procedure The sleep study was completed using GenoT a technically adequate device with seven channels: peripheral arterial tone, actigraphy, body position, snore, respiratory movement, pulse oximetry, sleep staging, and heart rate. Prior to using the device, the patient received verbal and written instructions for its application and was provided with the help desk phone number for additional telephonic instruction with 24-hour availability of qualified personnel to answer questions. The study was scored using CMS guidelines. Sleep Architecture The total recording time is 8 hrs, 30 min. The total sleep time is 7 hrs, 21 min. Sleep latency is 17 minutes. REM latency is 104 minutes. The patient had 8 episodes of waking. Sleep architecture shows 10.5% deep sleep, 72.4% light sleep, and (as % Total Sleep Time) showed NREM (Light 72.4%; Deep 10.5%), and a 17.1% stage REM. The patient spent 36.4% of total sleep time in the supine position. Sleep efficiency was 86.47. Respiratory Analysis The overall AHI (pAHI 4%:) is 1.7. The overall AHI (pAHI 3%:) is 3.7. The central AHI is 0.9. The AHI was 3.9 in NREM and 2.4 in REM sleep. The AHI was 7.4 in Supine and 1.5 in Non-supine sleep. Percent of [place] respirations is 0.0. Oximetry Data The oxygen desaturation index (GERALD 4%:) is 1.7. The mean saturation is 95%, and the lowest saturation is 88%. Time spent with saturation < 88% is 0.2 minutes. Snoring Profile Snoring average intensity is 41 dB. The patient snored above 45 decibels for 47.2 minutes, 10.7% of sleep time. Cardiac Profile The average pulse rate is 55 beats per minutes. The lowest pulse rate is 42 bpm. The highest pulse rate reported is 92 bpm. Atrial fibrillation was not detected. Premature beats occur <0.1 per minute. Assessment and Plan Assessment and Plan (1) Sleep disturbance: Code(s): G47.9 - Sleep disorder, unspecified Status: Acute Assessment and Plan: The patient had an overall AHI 1.7 with desaturation down to 88%. This is not consistent with sleep disordered breathing. Due to the severity of the patient's hypersomnia, further evaluation is warranted. I recommend that the patient have a split study with use of a hypnotic (Lunesta 2-3 mg or Ambien 5-10 mg) to ensure we obtain sleep data. Data The data obtained during this sleep study is adequate for interpretation. Certification This sleep study has been reviewed by a board certified sleep medicine physician.
[2024-10-14 10:15] VITALS: BMI 22.6
== END 2024-09-24 16:27 | disposition home or self-care (01) ==
LOC: ANHCSM 12:10
PROVIDERS: PCP Family Medicine; Visit Provider Physician Assistant
DX: G47.33 Obstructive sleep apnea (adult) (pediatric) (principal); G47.9 Sleep disorder, unspecified
CPT/HCPCS: 95800

== ENCOUNTER 2024-10-20 02:15 | Day surgery (SDC) | payer OTHER, SELFPAY ==
[2024-10-09 08:38] VITALS: BMI 22.4
--- OUTSIDE RECORDS SUMMARY | 2024-10-20 02:18 | XMS_ITS | Referral Summary ---
Author Organization [facility] Address [address] [place] [address] Care Team Providers Care Machine Heel Builder Name Role Phone Kem Meléndez MD Primary Care Provider Encounters Date Type Department Care Team Description 10/01/2024 7:07 AM STEEL INSPECTOR - 10/01/2024 11:59 PM STEEL INSPECTOR Hospital Encounter [facility] [address] [place] [address] Research exam; Elevated PSA Discharge Disposition: Discharge to home or self care 09/14/2024 3:50 PM STEEL INSPECTOR - 09/14/2024 11:59 PM STEEL INSPECTOR Hospital Encounter [facility] [address] [place] [address] Discharge Disposition: Discharge to home or self care 09/14/2024 Orders Only [facility] - [facility]rology [address] [place] [address] for Advanced Medicine 11th [place] [address] [place] [address] Leann Tinsley RMA Research exam (Primary Dx); Elevated PSA 08/27/2024 2:00 PM STEEL INSPECTOR Office Visit [facility] [address] [facility] [address] [place] [address] Armen George MD Elevated PSA (Primary Dx); Abnormal findings on diagnostic imaging of other abdominal regions, including retroperitoneum; Elevated prostate specific antigen (PSA) from Last 3 Months Allergies Active Allergy Reactions Criticality Noted Date Comments Opioids - Morphine Analogues Agitation Low 019 All Opoids medication Medications meloxicam (MOBIC) 7.5 mg tabletIndicatio ns:Osteoarthrit is Take 1 tablet (7.5 mg total) by mouth career counselor before breakfast Active amoxicillin (AMOXIL) 875 mg tabletIndicatio ns:Skin/Soft Tissue Infection,oral surgery Take 1 tablet (875 mg total) by mouth 2 (two) times a day Active ibuprofen (ADVIL,MOTRIN) 200 mg tab/cap Take by mouth every 6 (six) hours as needed for pain 10/13/19 Discontinu ed(Error) predniSONE (DELTASONE) 20 mg tabletIndicatio ns:Chronic low back pain, unspecified back pain laterality, with sciatica presence unspecified,Lum bar herniated disc Take 3 tabs daily x 3 days Take 2 tabs daily x 3 days Take 1 tab daily x 3 days 18 tablet 9 10/13/19 Discontinu ed(Error) Active Problems Problem Noted Date Diagnosed Date Elevated PSA 09/14/2024 Social History Tobacco Use Types Packs/Day Years Used Date Smoking Tobacco: Some Days Cigars Smokeless Tobacco: Never Alcohol Use Standard Drinks/Week Comments Yes 0 (1 standard drink = 0.6 oz pur e alcohol) AUDIT-C Answer Date Recorded Q1: How often do you have a drink containing alcohol? Never 10/12/2024 Q2: How many drinks containi ng alcohol do you have on a typical day when you are drinking? Patient does not drink Q3: How often do you have si x or more drinks on one occasion? Never 10/12/2024 Sex and Gender Information Value Date Recorded Sex Assigned at Not on file Legal Sex Male 12:21 AM STEEL INSPECTOR Gender Identity Male 08/19/2024 3:09 PM STEEL INSPECTOR Sexual Orientation Straight 08/19/2024 3: 09 PM STEEL INSPECTOR Last Filed Vital Signs Vital Sign Reading Time Taken Comments Blood Pressure 153/84 08/27/2024 1:59 PM STEEL INSPECTOR Pulse 68 08/27/2024 1:59 PM STEEL INSPECTOR Temperature - - Respiratory Rate - - Oxygen Saturation 95% 08/27/2024 1:59 PM STEEL INSPECTOR Inhaled Oxygen Concentration - - Weight 75.8 kg (167 lb) 10/12/2024 11:25 AM CDT Height 182.9 cm (6') 10/12/2024 11:25 AM CDT Body Mass Index 22.65 10/12/2024 11:25 AM CDT Plan of Treatment Upcoming Encounters Date Type Department Care Team (Latest Contact Info) Description 11/04/2024 12:50 PM CDT Hospital Encounter [facility] Operating Room [address] [place] [address] Armen George MD [address] [facility] [place] [address] 11/04/2024 12:50 PM CDT - 11/04/2024 1:58 PM CDT Surgery [facility] [address] [place] [address] Armen George MD [address] [facility] [place] [address] BIOPSY PROSTATE - TRANSPERINEAL Scheduled Procedures Name Priority Associated Diagnoses Date/Ti me BIOPSY PROSTATE - TRANSPERINEAL Elevated PSA 11/04/2024 12:50 PM CDT Procedures Procedure Name Priority Date/Time Associated Diagnosis Comments MRI PELVIS WO CONTRAST Schedule Routine, Read Routine (OP Routine) 10/01/2024 8:31 AM STEEL INSPECTOR Research exam Elevated PSA MR BODY OUTSIDE REFERENCE Routine 09/14/2024 3:50 PM STEEL INSPECTOR from Last 3 Months Results * MRI Pelvis WO Contrast (10/01/2024 8:31 AM STEEL INSPECTOR) Anatomical Region Laterality Modality Pelvis N/A Magnetic Resonan ce 10/02/2024 4:03 PM STEEL INSPECTOR Impressions 10/02/2024 4:03 PM STEEL INSPECTOR 1. A lesion in the right lateral peripheral zone at the apex is at very high suspicion for malignancy with an overall PI-RADS score of 5. No extraprostatic extension. 2. A lesion in the left lateral peripheral zone at the mid gland is at intermediate suspicion for malignancy with an overall PI-RADS score of 3. No extraprostatic extension. Electronically signed by: Gustavo Morales M.D. Narrative 10/02/2024 4:03 PM STEEL INSPECTOR EXAMINATION: MAGNETIC RESONANCE IMAGING OF THE PELVIS WITHOUT CONTRAST (research) HISTORY: Prostate cancer research study TECHNIQUE: MR imaging of the prostate gland was performed with a torso phased array coil at 3T without administration of intravenous gadolinium. Protocol: Prostate 3T COMPARISON: None available FINDINGS: Prostate volume: 41.9 cc The prostate transition zone is enlarged with benign prostatic hyperplasia. The prostate was assessed using the PI-RADS version 2.1 scoring system. The following lesions are of at least intermediate suspicion (PI-RADS 3 or greater): Lesion 1: Side: right Location: lateral Zone: peripheral zone Craniocaudal: apex Galvan images: series 13 001, image 46 Size: 0.7 mL; largest axial dimensions 16 x 7 Extraprostatic extension: - tumor contact length with prostate margin: 16 - margin bulge/irregularity: no - rectoprostatic angle obliteration: no - neurovascular bundle asymmetry: no - gross extraprostatic extension: no - overall EPE grade: 1 (either curvilinear contact length > 15 mm OR margin irregularity/bulge) T2WI score: 5 DWI score: 5 DCE: N/A (no contrast was given) Overall PI-RADS v2.1 assessment: 5 Lesion 2: Side: left Location: lateral Zone: peripheral zone Craniocaudal: mid gland Galvan images: series 13 001, image 43 Size: 0.7 mL; largest axial dimensions 18 x 10 Extraprostatic extension: - tumor contact length with prostate margin: 18 - margin bulge/irregularity: no - rectoprostatic angle obliteration: no - neurovascular bundle asymmetry: no - gross extraprostatic extension: no - overall EPE grade: 0 (no suspicion for pathologic EPE) T2WI score: 3 DWI score: 3 DCE: N/A (no contrast was given) Overall PI-RADS v2.1 assessment: 3 Staging Information: No enlarged lymph nodes are identified. No suspicious osseous lesions are identified. Other findings: Bladder seminal vesicles and visualized gastrointestinal tract is normal. Testes are normal. Procedure Note Gustavo Morales MD PhD - 10/02/2024 EXAMINATION: MAGNETIC RESONANCE IMAGING OF THE PELVIS WITHOUT CONTRAST (research) HISTORY: Prostate cancer research study TECHNIQUE: MR imaging of the prostate gland was performed with a torso phased array coil at 3T without administration of intravenous gadolinium. Protocol: Prostate 3T COMPARISON: None available FINDINGS: Prostate volume: 41.9 cc The prostate transition zone is enlarged with benign prostatic hyperplasia. The prostate was assessed using the PI-RADS version 2.1 scoring system. The following lesions are of at least intermediate suspicion (PI-RADS 3 or greater): Lesion 1: Side: right Location: lateral Zone: peripheral zone Craniocaudal: apex Galvan images: series 13 001, image 46 Size: 0.7 mL; largest axial dimensions 16 x 7 Extraprostatic extension: - tumor contact length with prostate margin: 16 - margin bulge/irregularity: no - rectoprostatic angle obliteration: no - neurovascular bundle asymmetry: no - gross extraprostatic extension: no - overall EPE grade: 1 (either curvilinear contact length > 15 mm OR margin irregularity/bulge) T2WI score: 5 DWI score: 5 DCE: N/A (no contrast was given) Overall PI-RADS v2.1 assessment: 5 Lesion 2: Side: left Location: lateral Zone: peripheral zone Craniocaudal: mid gland Galvan images: series 13 001, image 43 Size: 0.7 mL; largest axial dimensions 18 x 10 Extraprostatic extension: - tumor contact length with prostate margin: 18 - margin bulge/irregularity: no - rectoprostatic angle obliteration: no - neurovascular bundle asymmetry: no - gross extraprostatic extension: no - overall EPE grade: 0 (no suspicion for pathologic EPE) T2WI score: 3 DWI score: 3 DCE: N/A (no contrast was given) Overall PI-RADS v2.1 assessment: 3 Staging Information: No enlarged lymph nodes are identified. No suspicious osseous lesions are identified. Other findings: Bladder seminal vesicles and visualized gastrointestinal tract is normal. Testes are normal. IMPRESSION: 1. A lesion in the right lateral peripheral zone at the apex is at very high suspicion for malignancy with an overall PI-RADS score of 5. No extraprostatic extension. 2. A lesion in the left lateral peripheral zone at the mid gland is at intermediate suspicion for malignancy with an overall PI-RADS score of 3. No extraprostatic extension. Electronically signed by: Gustavo Morales M.D. Gustavo Morales MD PhD IMG MRI PROCEDURES Final Result * MR Body Outside Reference (09/14/2024 3:50 PM STEEL INSPECTOR) Impressions [facility] - 09/14/2024 3:50 PM STEEL INSPECTOR These images are for Reference purposes only and have not been reviewed by [facility]. There will be no report generated by a [facility] Radiologist. Narrative [facility] - 09/14/2024 3:50 PM STEEL INSPECTOR EXAMINATION: Images For Reference Purposes Only us Armen George MD IMG MRI PROCEDURES Fi nal Result [facility] from Last 3 Months Insurance [facility] Care Teams Machine Heel Builder Relationship Specialty Start Date End Date Kem Meléndez MD [address] [place] [address] PCP - General Family Medicine 10/11/20
--- OUTSIDE RECORDS SUMMARY | 2024-10-20 02:18 | XMS_ITS | Clinical Summary ---
Author Organization [facility] Orthopedic [facility] Address [address] [place] [address] Care Team Providers Care Smeller Name Role Phone Kem Meléndez MD Primary Care Provider Allergies Active Allergy Reactions Criticality Noted Date Comments Opioids - Morphine Analogues Agitation Low 019 All Opoids medication Medications meloxicam (MOBIC) 7.5 mg tabletIndicatio ns:Osteoarthrit is Take 1 tablet (7.5 mg total) by mouth speech therapist early intervention before breakfast Active amoxicillin (AMOXIL) 875 mg [...] Department Care Team Description 10/01/2024 7:07 AM PASSENGER CONDUCTOR - 10/01/2024 11:59 PM PASSENGER CONDUCTOR Hospital Encounter [facility] Radiology 1 [facility] [place] [address] Research exam; Elevated PSA Discharge Disposition: Discharge to home or self care 09/14/2024 3:50 PM PASSENGER CONDUCTOR - 09/14/2024 11:59 PM PASSENGER CONDUCTOR Hospital Encounter [facility] [address] [place] [address] Discharge Disposition: Discharge to home or self care 09/14/2024 Orders Only [place] [facility] ([facility]) - [facility] Urology [address] [facility] 11th [place] [address] [place] [address] Leann Tinsley RMA Research exam (Primary Dx); Elevated PSA 08/27/2024 2:00 PM PASSENGER CONDUCTOR Office Visit [facility] Urology [address] [facility] Medical Office Building [address] [place] [address] Armen George MD Elevated PSA (Primary Dx); Abnormal findings on diagnostic imaging of other abdominal regions, including retroperitoneum; Elevated prostate specific antigen (PSA) from Last 3 Months Surgical History Surgery Date Site/Laterality Comments BACK SURGERY 1990s COLONOSCOPY next 10/20/2024 Family History Medical History Relation Name Comments [...] on file Legal Sex Male 12:21 AM PASSENGER CONDUCTOR Gender Identity Male 08/19/2024 3:09 PM PASSENGER CONDUCTOR Sexual Orientation Straight 08/19/2024 3: 09 PM PASSENGER CONDUCTOR Obstetrics History Last Filed Vital Signs Vital Sign Reading Time Taken Comments Blood Pressure 153/84 08/27/2024 1:59 PM PASSENGER CONDUCTOR Pulse 68 08/27/2024 1:59 PM PASSENGER CONDUCTOR Temperature - - Respiratory Rate - - Oxygen Saturation 95% 08/27/2024 1:59 PM PASSENGER CONDUCTOR Inhaled Oxygen Concentration - - Weight 75.8 kg (167 lb) 10/12/2024 11:25 AM CDT Height 182.9 cm (6') 10/12/2024 11:25 AM CDT Body Mass Index 22.65 10/12/2024 11:25 AM CDT Plan of Treatment Upcoming Encounters Date Type Department Care Team (Latest Contact Info) Description 11/04/2024 12:50 PM CDT Hospital Encounter [facility] Operating Room [address] [place] [address] Armen George MD [address] [place] [address] 11/04/2024 12:50 PM CDT - 11/04/2024 1:58 PM CDT Surgery [facility] Operating Room [address] [place] [address] Armen George MD [address] [facility] [place] [address] BIOPSY PROSTATE - TRANSPERINEAL Scheduled Procedures Name Priority Associated Diagnoses Date/Ti me BIOPSY PROSTATE - TRANSPERINEAL Elevated PSA 11/04/2024 12:50 PM CDT Health Maintenance Due Date Last [...] Read Routine (OP Routine) 10/01/2024 8:31 AM PASSENGER CONDUCTOR Research exam Elevated PSA MR BODY OUTSIDE REFERENCE Routine 09/14/2024 3:50 PM PASSENGER CONDUCTOR from Last 3 Months Results * MRI Pelvis WO Contrast (10/01/2024 8:31 AM PASSENGER CONDUCTOR) Anatomical Region Laterality Modality Pelvis N/A Magnetic Resonan ce 10/02/2024 4:03 PM PASSENGER CONDUCTOR Impressions 10/02/2024 4:03 PM PASSENGER CONDUCTOR 1. A lesion in the right lateral [...] Gustavo Morales M.D. Narrative 10/02/2024 4:03 PM PASSENGER CONDUCTOR EXAMINATION: MAGNETIC RESONANCE IMAGING OF THE PELVIS [...] MR Body Outside Reference (09/14/2024 3:50 PM PASSENGER CONDUCTOR) Impressions [facility] - 09/14/2024 3:50 PM PASSENGER CONDUCTOR These images are for Reference purposes only and have not been reviewed by [facility] Radiology. There will be no report generated by a [facility] Radiologist. Narrative [facility] - 09/14/2024 3:50 PM PASSENGER CONDUCTOR EXAMINATION: Images For Reference Purposes Only us Armen George MD IMG MRI PROCEDURES Fi nal Result [facility] from Last 3 Months Insurance [facility] Care Teams Smeller Relationship Specialty Start Date End Date Kem Meléndez MD [address] [place] [address] PCP - General Family Medicine 10/11/20
[2024-10-20 12:22] VITALS: BP 120/96; PULSE 61; RESP 20; TEMP 36.4; O2SAT 100; BMI 22.9
[2024-10-20] MEDS: LACTATED RINGERS 1,000 ML 150 ML IV CONT (12:33)
--- NOTE | 2024-10-20 13:09 | PM.IMHP ---
H&P: HPI History of Present Illness Date/Time: 10/20/24 13:09 Chief Complaint: History of colon polyps Narrative: The patient has a history of colonic polyps, the last colonoscopy was in 2019, there were no polyps. However, on previous colonoscopies he did have polyps. Review of Systems Review of Systems: All systems reviewed & are unremarkable except as noted in HPI and below PMFSH Past Medical History Medical History Nephrolithiasis Suspected sleep apnea GERD (gastroesophageal reflux disease) HLD (hyperlipidemia) Healthy adult HTN (hypertension) Surgical History Surgical History History of lumbar surgery L5 Family History Family History Father Heart disease Hypertension Mother Pancreatic cancer Social History Social History Years smoked: 30 Smoking status: Former smoker Tobacco type: cigars Second hand tobacco smoke exposure: No Additional smoking assessment comments: OCCAS CIGAR W/ GOLFING FOR 20 YRS Alcohol intake: former Drinks per week: 2 Alcohol use details: FORMER SOCIAL Substance use: never Substance use type: does not use Do You Feel Safe in your Home?: Yes Lack of Transportation: No Lack of Food: Never True Current Housing: I Have Housing Concerned About Future Housing: No Difficulty Paying Gas/Electric Bills: No Difficulty Paying for Meds: No Currently Unemployed: No Education: Don't Know Difficulty w/ Childcare or Family Care: No Living arrangements: alone Occupation/Education: occupation Gender identity (if verbalized by the patient): Male Sexual Orientation (if Verbalized by the Patient): Straight or Heterosexual Spiritual care concerns: No Meds Home Medications and Allergies Home Medications ?Medication ?Instructions ?Recorded ?Confirmed ?Type meloxicam 7.5 mg tablet 7.5 mg PO DAILY PRN pain #90 tabs 08/13/24 10/09/24 Rx Allergies Allergy/AdvReac Type Severity Reaction Status Date / Time Narcotics AdvReac Other Uncoded 10/20/24 12:24 Vital Signs Vital Signs - 24 hr 10/20/24 12:22 Temperature 97.6 F Pulse Rate 61 Respiratory Rate 20 Blood Pressure 120/96 H Pulse Oximetry 100 Oxygen Delivery Room Air Exam Const: General: cooperative and healthy appearing Resp: Effort & Inspection: normal respiratory effort and able to speak in complete sentences Auscultation: clear to auscultation bilaterally Cardio: Rate: regular rate Rhythm: regular rhythm GI: Inspection: normal to inspection GI Palp: No No hepatosplenomegaly present Auscultation: normal bowel sounds Rectal Exam: deferred Skin: General skin exam: normal color Psych: Appearance: grossly normal Mental Status: mental status grossly normal Assessment and Plan Assessment and plan (1) History of colonic polyps: Code(s): Z86.0100 - Personal history of colon polyps, unspecified Status: Acute Assessment and Plan: The patient is deemed a good candidate for the procedure. Consent signed. Will proceed.
--- NOTE | 2024-10-20 13:12 | WPDANESEPPF ---
Anes - Initial Pre Proc Eval Procedure: Operation Date: 10/20/24 13:30 Proposed Procedures p Screening Colonoscopy - Tee Bennett MD Date/Time: 10/20/24 13:12 Surgeon: Tee Bennett MD Pre Op Diagnosis: Screening Patient Data Age: 69 Gender: M Height: 1.83 m Weight: 76.7 kg Last Vital Signs Temp 36.4 C 10/20/24 12:22 Pulse 61 10/20/24 12:22 Resp 20 10/20/24 12:22 BP 120/96 H 10/20/24 12:22 Pulse Ox 100 10/20/24 12:22 O2 Del Method Room Air 10/20/24 12:22 Allergies Allergy/AdvReac Type Severity Reaction Status Date / Time Narcotics AdvReac Other Uncoded 10/20/24 12:24 Home Medications ?Medication ?Instructions ?Recorded ?Confirmed ?Type meloxicam 7.5 mg tablet 7.5 mg PO DAILY PRN pain #90 tabs 08/13/24 10/09/24 Rx Patient hx anesthesia problems: none Family hx anesthesia problems: none Results Review: All pre-operative results and documents have been reviewed as part of the pre-operative evaluation. [facility] Past Medical History Medical History Nephrolithiasis Suspected sleep apnea GERD (gastroesophageal reflux disease) HLD (hyperlipidemia) Healthy adult HTN (hypertension) Surgical History Surgical History History of lumbar surgery L5 Family History Family History Father Heart disease Hypertension Mother Pancreatic cancer Social History Social History Years smoked: 30 Smoking status: Former smoker Tobacco type: cigars Second hand tobacco smoke exposure: No Additional smoking assessment comments: OCCAS CIGAR W/ GOLFING FOR 20 YRS Alcohol intake: former Drinks per week: 2 Alcohol use details: FORMER SOCIAL Substance use: never Substance use type: does not use Do You Feel Safe in your Home?: Yes Lack of Transportation: No Lack of Food: Never True Current Housing: I Have Housing Concerned About Future Housing: No Difficulty Paying Gas/Electric Bills: No Difficulty Paying for Meds: No Currently Unemployed: No Education: Don't Know Difficulty w/ Childcare or Family Care: No Living arrangements: alone Occupation/Education: occupation Gender identity (if verbalized by the patient): Male Sexual Orientation (if Verbalized by the Patient): Straight or Heterosexual Spiritual care concerns: No Anes - Eval Final PreProcedure Day of Procedure 10/20/24 13:12 Patient weight: normal Heart: regular rate and rhythm Lungs: clear to auscultation Airway: Mallampati scale class II Neurological: alert and oriented Last oral intake: >/= 8 hours ASA classification: II Emergent: no Anesthetic plan: proceed Anesthesia type and monitoring: general GIVS and standard monitoring Results Review: All pre-operative results and documents have been reviewed as part of the pre-operative evaluation. Informed Consent: The patient's anesthetic plan and its attendant risks and benefits were discussed with the patient/family/POA. Questions were solicited and answers provided to the satisfaction of the patient/family/POA.
[2024-10-20 13:38] VITALS: BP 110/63; PULSE 58; RESP 20; O2SAT 100
[2024-10-20 13:48] VITALS: BP 108/65; PULSE 60; RESP 20; O2SAT 100
[2024-10-20 13:58] VITALS: BP 123/74; PULSE 55; RESP 16; O2SAT 100
== END 2024-10-20 14:12 | disposition home or self-care (01) ==
PROVIDERS: PCP Family Medicine; Referring Provider Physician Assistant; Visit Provider Internal Medicine Gastroenterology
PROC: 0DJD8ZZ Inspection of Lower Intestinal Tract, Via Natural or Artificial Opening Endoscopic (ICD-10-PCS; CPT 45378; principal; 2024-10-20 13:30)
DX: Z12.11 Encounter for screening for malignant neoplasm of colon (principal); K63.5 Polyp of colon; E78.5 Hyperlipidemia, unspecified; I10 Essential (primary) hypertension; K21.9 Gastro-esophageal reflux disease without esophagitis; F17.290 Nicotine dependence, other tobacco product, uncomplicated; Z98.890 Other specified postprocedural states; Z98.1 Arthrodesis status; Z80.0 Family history of malignant neoplasm of digestive organs; Z82.49 Family history of ischemic heart disease and other diseases of the circulatory system
CPT/HCPCS: 45385; 88305; J2003; J2704; J7120

== ENCOUNTER 2025-02-05 14:39 | Outpatient (CLI) | payer OTHER, SELFPAY ==
--- NOTE | ~2025-02-05 | XR_ITS ---
EXAM/ PROCEDURE: XR hip RT 2V w AP pelvis - 02/05/2025 15:12 CDT HISTORY: 69 years old Male with M54.50 - Low back pain, unspecified COMPARISON: None available TECHNIQUE: Three view(s) FINDINGS/ IMPRESSION: There are no fractures or dislocations.Joint space narrowing, subchondral sclerosis, subchondral cyst formation and osteophyte formation, compatible with mild to moderate osteoarthritis. Reviewed, dictated and finalized at location A.
--- NOTE | ~2025-02-05 | XR_ITS ---
Lumbosacral Spine: AP, oblique, and lateral views Clinical History: Pain Findings: The normal lordotic curve is maintained. No fracture or sublocation. There is probably mode rate to advanced degenerative disc narrowing L5-S1. There is moderate degenerative disc change at L3- L4. There is moderate to advanced facet arthropathy, especially from L3 through S1. The sacroiliac roxanne ints are normally outlined. Suspected 5 mm right renal stone, and questionable 7 mm proximal right ur eteral stone Impression: Moderate degenerative spondylosis overall, as detailed above. Possible right renal and proximal right ureteral stones, as above. Correlate with symptomatology. Con bag machine tender noncontrast CT of the abdomen/pelvis to further evaluate for nephrolithiasis, as indicated. Reviewed, dictated and finalized at location . Impression: Moderate degenerative spondylosis overall, as detailed above. Possible right renal and proximal right ureteral stones, as above. Correlate wi th symptomatology. Consider noncontrast CT of the abdomen/pelvis to further bella luate for nephrolithiasis, as indicated.
--- OUTSIDE RECORDS SUMMARY | 2025-02-05 14:41 | XMS_ITS | Referral Summary ---
Author Organization [facility] Address [address] [place] [address] Care Team Providers Care Cosmetology Instructor Name Role Phone Kem Meléndez MD Primary Care Provider Mohan Torrez MD Unavailable [phone] Armen George MD Unavailable [phone] Encounters Date Type Department Care Team Description 12/15/2024 Orders Only [facility] Medical [facility] Cardiology [address] [facility] [address] [place] [address] Ricky Mills PA 12/15/2024 9:15 AM CDT Office Visit [facility] Medical [facility] Cardiology [address] [place] [address] Mikey Mattson MD Chest pain, unspecified type; Nonrheumatic mitral (valve) insufficiency; Tachycardia, unspecified; Bradycardia 12/03/2024 2:20 PM CDT Office Visit [place] [facility] ([facility]) - [facility] Urology [address] [place] [address] Advanced Medicine 11th [place] [address] Armen George MD Malignant neoplasm of prostate (HCC) (Primary Dx) 11/11/2024 3:00 PM CDT Consult [facility] Radiation Oncology [address] [place] [address] Mohan Torrez MD Prostate cancer (HCC) (Primary Dx); Malignant neoplasm of prostate (HCC) from Last 3 Months Allergies Active Allergy Reactions Criticality Noted Date Comments Opioids - Morphine Analogues Agitation Low 019 All Opoids medication Medications meloxicam (MOBIC) 7.5 mg tabletIndication s:Osteoarthritis Take 1 tablet (7.5 mg total) by mouth daily as needed for pain Active Active Problems Problem Noted Date Diagnosed Date Prostate cancer 11/10/2024 Cancer Staging:Clinical stage from 11/04/2024:Stage IIB(cT1c, cN0, cM0, PSA: 6.5, Grade Group: 2) - Signed by Mohan Torrez MD on 11/11/2024 Elevated PSA 09/14/2024 Social History Tobacco Use Types Packs/Day Years Used Date Smoking Tobacco: Some Days Cigarettes 0.1 50.5 Started: 1974 Cigars Smokeless Tobacco: Never Tobacco Cessation:Ready to Q uit: Not Asked; Counseling Given: Not Answered Alcohol Use Standard Drinks/Week Comments Yes 0 (1 standard drink = 0.6 oz pur e alcohol) AUDIT-C Answer Date Recorded Q1: How often do you have a drink containing alcohol? Never 11/04/2024 Q2: How many drinks containi ng alcohol do you have on a typical day when you are drinking? Patient does not drink Q3: How often do you have si x or more drinks on one occasion? Never 11/04/2024 Personal Safety Answer Date Recorded Have you ever been in or are you currently in a harmful physical or emotional relationship or is someone making you feel afraid or unsafe? Denies 11/04/2024 Sex and Gender Information Value Date Recorded Sex Assigned at Not on file Legal Sex Male 12:21 AM REGULAR SENIOR CARE PROVIDER Gender Identity Male 08/19/2024 3:09 PM REGULAR SENIOR CARE PROVIDER Sexual Orientation Straight 08/19/2024 3: 09 PM REGULAR SENIOR CARE PROVIDER Occupation Industry Job Start Date Job End Date [employer] Not on file Not on file Not on file Last Filed Vital Signs Vital Sign Reading Time Taken Comments Blood Pressure 140/82 12/15/2024 9:16 AM CDT Pulse 57 12/15/2024 9:16 AM CDT Temperature 36.9 C (98.4 F) 11/11/2024 2:55 PM CDT Respiratory Rate 18 11/11/2024 2:55 PM CDT Oxygen Saturation 98% 12/15/2024 9:16 AM CDT Inhaled Oxygen Concentration - - Weight 75.8 kg (167 lb) 12/15/2024 9:16 AM CDT Height 182.9 cm (6') 12/15/2024 9:16 AM CDT Body Mass Index 22.65 12/15/2024 9:16 AM CDT Plan of Treatment Not on file Procedures Procedure Name Priority Date/Time Associated Diagnosis Comments ELECTROCARDIOGRAM REPORT Routine 12/15/2024 Chest pain, unspecified type from Last 3 Months Results * Electrocardiogram Report (12/15/2024) 12/15/2024 us Mikey Mattson MD ECG ORDERABLES Edited Result - Final from Last 3 Months Insurance [facility] Care Teams Cosmetology Instructor Relationship Specialty Start Date End Date Kem Meléndez MD [address] [place] [address] PCP - General Family Medicine 10/11/20 Mohan Torrez MD [address] [place] [address] Consulting Physician Radiation Oncology 11/06/24 Armen George MD [address] [place] [address] Consulting Physician Surgery 11/06/24
--- OUTSIDE RECORDS SUMMARY | 2025-02-05 14:41 | XMS_ITS | Clinical Summary ---
Author Organization [facility] Address [address] [place] [address] Care Team Providers Care Job Molder Name Role Phone Kem Meléndez MD Primary Care Provider Mohan Torrez MD Unavailable [phone] Armen George MD Unavailable Allergies Active Allergy Reactions Criticality Noted Date [...] Torrez MD on 11/11/2024 Elevated PSA 09/14/2024 Encounters Date Type Department Care Team Description 12/15/2024 9:15 AM CDT Office Visit [facility] Medical Group Cardiology [address] [place] [phone] Mikey Mattson MD Chest pain, unspecified type; Nonrheumatic mitral (valve) insufficiency; Tachycardia, unspecified; Bradycardia 12/15/2024 Orders Only [facility] Medical Group Cardiology [address] [place] [address] Ricky Mills PA 12/03/2024 2:20 PM CDT Office Visit [facility] Advanced Medicine ([facility]) - [facility] Urology [address] [facility] Advanced Medicine 11th [place] [address] [place] [address] Armen George MD Malignant neoplasm of prostate (HCC) (Primary Dx) 11/11/2024 3:00 PM CDT Consult [facility] Radiation Oncology [address] [place] [address] Mohan Torrez MD Prostate cancer (HCC) (Primary Dx); Malignant neoplasm of prostate (HCC) from Last 3 Months Surgical History Surgery Date Site/Laterality Comments BACK SURGERY 07/29/1993 - 07/28/1994 L5 decompression COLONOSCOPY next 10/20/2024 Medical History Medical History Date Comments Sleep apnea Family History Medical History Relation Name Comments Heart disease Father Prostate cancer Father Stroke Father Pancreatic cancer Mother Prostate cancer Mother's Brother Lung cancer Other 1 Family history of Cancer -lung; Stroke Other 2 Family history of Stroke; Heart disease Other 3 Family history of Heart disease; Relation Name Status Comments Father Mother Mother's Brother Other 1 Other 2 Other 3 Social [...] on file Legal Sex Male 12:21 AM NOUGAT CUTTER MACHINE Gender Identity Male 08/19/2024 3:09 PM NOUGAT CUTTER MACHINE Sexual Orientation Straight 08/19/2024 3: 09 PM NOUGAT CUTTER MACHINE 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 file Not on file Not on file Obstetrics History Last Filed Vital Signs Vital [...] 12/15/2024 9:16 AM CDT Plan of Treatment Health Maintenance Due Date Last Done Comments Colon Cancer Screening-Colonoscopy 1955 Depression Screening 1954 Hepatitis C Screening 1954 Prostate Cancer Screening-PSA 1954 Hepatitis B Screening 1972 Abdominal Aortic Aneurysm (A AA) Screen 2019 Well Visit 65+ 2019 Pneumococcal vaccine 65+ (2 of 2 - PCV) 04/01/2021 04/01/2020 Influenza Vaccine (#1) 2025 1, 04/01/2020, 05/07/2019, Additional history exists Fall Risk Assessment 11/04/2025 11/04/2024 DTaP/Tdap/Td Vaccine (3 - Td or Tdap) 06/01/2030 06/01/2020, 11/17/2016 Zoster Vaccine Completed 06/01/2020, 04/01/2020 Procedures Procedure Name Priority Date/Time Associated Diagnosis Comments ELECTROCARDIOGRAM REPORT Routine 12/15/2024 Chest pain, unspecified type from Last 3 Months Results * Electrocardiogram Report (12/15/2024) 12/15/2024 us Mikey Mattson MD ECG ORDERABLES Edited Result - Final from Last 3 Months Insurance [facility] Care Teams Job Molder Relationship Specialty Start Date End Date Kem Meléndez MD [address] [facility] [address] [place] [address] PCP - General Family Medicine 10/11/20 Mohan Torrez MD [address] [place] [address] Consulting Physician Radiation Oncology 11/06/24 Armen George MD [address] [place] [address] Consulting Physician Surgery 11/06/24
[2025-02-05 15:50] LABS: Prostate Specific Antigen 7.3 ng/mL (< OR = 4.0)
== END 2025-02-05 14:40 | disposition home or self-care (01) ==
PROVIDERS: PCP Family Medicine; Visit Provider Physician Assistant
DX: C61 Malignant neoplasm of prostate (principal); M25.551 Pain in right hip; S39.92XA Unspecified injury of lower back, initial encounter; X58.XXXA Exposure to other specified factors, initial encounter; M47.896 Other spondylosis, lumbar region
CPT/HCPCS: 36415; 72110; 73502; 84153

== ENCOUNTER 2025-02-09 20:25 | Emergency (ER) | payer OTHER, SELFPAY ==
[2025-02-09 20:27] VITALS: BP 160/97; PULSE 77; RESP 16; TEMP 36.8; O2SAT 99
--- OUTSIDE RECORDS SUMMARY | 2025-02-09 20:28 | XMS_ITS | Clinical Summary ---
Author Organization [facility] Address [address] [place] [address] Care Team Providers Care Pega Developer Name Role Phone Kem Meléndez MD Primary Care Provider Mohan Torrez MD Unavailable [phone] Armen George MD Unavailable Allergies Active Allergy [...] Description 12/15/2024 9:15 AM CDT Office Visit [facility] Medical Group Cardiology [address] [place] [phone] Mikey Mattson MD Chest pain, unspecified type; Nonrheumatic mitral (valve) insufficiency; Tachycardia, unspecified; Bradycardia 12/15/2024 Orders Only [facility] Medical Group Cardiology [address] [place] [address] Ricky Mills PA 12/03/2024 2:20 PM CDT Office Visit [facility] Advanced Medicine ([facility]) - [facility] Urology [address] [facility] Advanced Medicine 11th [place] [address] [place] [address] Armen George MD Malignant neoplasm of prostate (HCC) (Primary Dx) 11/11/2024 3:00 PM CDT Consult [facility] Radiation Oncology [address] [place] [address] Mohan Torrez MD Prostate cancer [...] on file Legal Sex Male 12:21 AM AMERICAN SIGN LANGUAGE TEACHER Gender Identity Male 08/19/2024 3:09 PM AMERICAN SIGN LANGUAGE TEACHER Sexual Orientation Straight 08/19/2024 3: 09 PM AMERICAN SIGN LANGUAGE TEACHER 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 on file Not on file Not [...] - Final from Last 3 Months Insurance [facility] Care Teams Pega Developer Relationship Specialty Start Date End Date eKm Meléndez MD [address] [facility] [address] [place] [address] PCP - General Family Medicine 10/11/20 Mohan Torrez MD [address] [place] [address] Consulting Physician Radiation Oncology 11/06/24 Armen George MD [address] [place] [address] Consulting Physician Surgery 11/06/24
--- OUTSIDE RECORDS SUMMARY | 2025-02-09 20:28 | XMS_ITS | Referral Summary ---
Author Organization [facility] Address [address] [place] [address] Care Team Providers Care It Sales Consultant Name Role Phone Kem Meléndez MD Primary Care Provider Mohan Torrez MD Unavailable [phone] Armen George MD Unavailable Encounters Date Type Department Care Team Description 12/15/2024 Orders Only [facility] Medical [facility] Cardiology [address] [facility] [address] [place] [phone] Ricky Mills PA 12/15/2024 9:15 AM CDT Office Visit [facility] Medical [facility] Cardiology [address] [place] [phone] Mikey Mattson MD Chest pain, unspecified type; Nonrheumatic mitral (valve) insufficiency; Tachycardia, unspecified; Bradycardia 12/03/2024 2:20 PM CDT Office Visit [facility] ([facility] - [facility] Urology [address] [place] [address] Advanced Medicine 11th [place] [address] Armen George MD Malignant neoplasm of prostate (HCC) (Primary Dx) 11/11/2024 3:00 PM CDT Consult [facility] Radiation Oncology [address] [place] [address] Mohan Torrez MD Prostate cancer [...] on file Legal Sex Male 12:21 AM RADIO EQUIPMENT REPAIRER Gender Identity Male 08/19/2024 3:09 PM RADIO EQUIPMENT REPAIRER Sexual Orientation Straight 08/19/2024 3: 09 PM RADIO EQUIPMENT REPAIRER Occupation Industry Job Start Date Job End Date [employer] Not on file Not on file Not [...] - Final from Last 3 Months Insurance [employer] Care Teams It Sales Consultant Relationship Specialty Start Date End Date Kem Meléndez MD [address] [place] [address] PCP - General Family Medicine 10/11/20 Mohan Torrez MD [address] DEPT [place] [address] Consulting Physician Radiation Oncology 11/06/24 Armen George MD [address] [place] [address] Consulting Physician Surgery 11/06/24
[2025-02-09] MEDS: KETOROLAC 15 MG/ML VIAL (*BKC) IV PUSH (21:11)
[2025-02-09] MEDS: diazePAM INJ (*CRX) 10 MG/2 ML SYRINGE 3 MG IV PUSH (21:11)
--- OUTSIDE RECORDS SUMMARY | 2025-02-09 21:14 | XMS_ITS | Clinical Summary ---
Author Organization [facility] Address [address] [place] [address] Care Team Providers Care Machine Shop Apprentice Name Role Phone Kem Meléndez MD Primary Care Provider Mohan Torrez MD Unavailable Armen George MD Unavailable Allergies Active Allergy [...] Description 12/15/2024 9:15 AM CDT Office Visit [facility] Cardiology [address] [place] [phone] Mikey Mattson MD Chest pain, unspecified type; Nonrheumatic mitral (valve) insufficiency; Tachycardia, unspecified; Bradycardia 12/15/2024 Orders Only [facility] Cardiology [address] [place] [address] Ricky Mills PA 12/03/2024 2:20 PM CDT Office Visit [facility] Advanced Medicine ([facility]) - [facility] Urology [address] [facility] Advanced Medicine 11th [place] [address] [place] [address] Armen George MD Malignant neoplasm of prostate (HCC) (Primary Dx) 11/11/2024 3:00 PM CDT Consult [facility] Radiation Oncology [address] [place] [address] Mohan Torrez MD Prostate cancer [...] on file Legal Sex Male 12:21 AM LEAD CARE MANAGER Gender Identity Male 08/19/2024 3:09 PM LEAD CARE MANAGER Sexual Orientation Straight 08/19/2024 3: 09 PM LEAD CARE MANAGER 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 Not on file Not [...] Results * Electrocardiogram Report (12/15/2024) 12/15/2024 us Mikye Mattson MD ECG ORDERABLES Edited Result - Final from Last 3 Months Insurance [employer] Care Teams Machine Shop Apprentice Relationship Specialty Start Date End Date Kem Meléndez MD [address] [facility] [address] [place] [address] PCP - General Family Medicine 10/11/20 Mohan Torrez MD [address] [place] [address] Consulting Physician Radiation Oncology 11/06/24 Armen George MD [address] [place] [address] Consulting Physician Surgery 11/06/24
--- OUTSIDE RECORDS SUMMARY | 2025-02-09 21:14 | XMS_ITS | Referral Summary ---
Author Organization [facility] Address [address] [place] [address] Care Team Providers Care Department Chairperson Name Role Phone Kem Meléndez MD Primary Care Provider Mohan Torrez MD Unavailable [phone] Armen George MD Unavailable Encounters Date Type Department Care Team Description 12/15/2024 Orders Only [facility] Medical [facility] Cardiology [address] [facility] [address] [place] [phone] Ricky Mills PA 12/15/2024 9:15 AM CDT Office Visit [facility] Medical [facility] Cardiology [address] [place] [phone] Mikey Mattson MD Chest pain, unspecified type; Nonrheumatic mitral (valve) insufficiency; Tachycardia, unspecified; Bradycardia 12/03/2024 2:20 PM CDT Office Visit [facility] - [facility] Urology [address] [place] [address] Advanced Medicine 11th [place] [address] Armen George MD Malignant neoplasm of prostate (HCC) (Primary Dx) 11/11/2024 3:00 PM CDT Consult [facility] Radiation Oncology [address] [place] [address] Mohan Torrez MD Prostate cancer [...] on file Legal Sex Male 12:21 AM CRABBER Gender Identity Male 08/19/2024 3:09 PM CRABBER Sexual Orientation Straight 08/19/2024 3: 09 PM CRABBER 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
--- NOTE | 2025-02-09 21:40 | ED.GENADULT ---
HPI - General Adult General Chief complaint: Extremity Problem,Nontraumatic Stated complaint: R leg pain Time Seen by Provider: 02/09/25 20:39 History of Present Illness HPI narrative: Patient is a 6-year-old male who presents ER with right leg pain. Ongoing for 3 weeks. Worsened by breaking down fluid on his land. Has radiation down his leg. He has been seen by his doctor and had x-rays of his hip and his low back. Has some chronic degenerative disease. He is taking cyclobenzaprine as well as meloxicam. He is unable sleep especially over last 3 days. He is looking for additional relief. No saddle anesthesia. No difficulty with urination/defecation. Related Data Allergies Allergy/AdvReac Type Severity Reaction Status Date / Time Narcotics AdvReac Other Uncoded 02/05/25 14:01 Review of Systems Review of Systems: All systems reviewed & are unremarkable except as noted in HPI and below Constitutional: Constitutional: Reports no additional constitutional complaints ENT: Reports system reviewed and no additional complaints, except as documented Cardiovascular: Cardiovascular: Reports no additional cardiovascular complaints Respiratory: Respiratory: Reports no additional respiratory complaints Musculoskeletal: Musculoskeletal: Reports no additional musculoskeletal complaints [facility] Past Medical History Medical History Nephrolithiasis Suspected sleep apnea GERD (gastroesophageal reflux disease) HLD (hyperlipidemia) Healthy adult HTN (hypertension) Surgical History Surgical History History of lumbar surgery L5 Family History Family History Father Heart disease Hypertension Mother Pancreatic cancer Social History Social History Years smoked: 30 Smoking status: Former smoker Tobacco type: cigars Second hand tobacco smoke exposure: No Additional smoking assessment comments: OCCAS CIGAR W/ GOLFING FOR 20 YRS Alcohol intake: former Drinks per week: 2 Alcohol use details: FORMER SOCIAL Substance use: never Substance use type: does not use Do You Feel Safe in your Home?: Yes Lack of Transportation: No Lack of Food: Never True Current Housing: I Have Housing Concerned About Future Housing: No Difficulty Paying Gas/Electric Bills: No Difficulty Paying for Meds: No Currently Unemployed: No Education: Don't Know Difficulty w/ Childcare or Family Care: No Living arrangements: alone Occupation/Education: occupation Gender identity (if verbalized by the patient): Male Sexual Orientation (if Verbalized by the Patient): Straight or Heterosexual Spiritual care concerns: No Exam Narrative: GENERAL: Well-appearing, well-nourished, and in no acute distress. HEAD: Normocephalic, atraumatic. ENT: Mucous membranes moist. Back: No significant reproducible tenderness the midline T/L-spine. Mild tenderness just lateral on left side of L2-L3 region that reproduces pain. No SI tenderness bilaterally. EXTREMITIES: Normal range of motion. No edema. SKIN: Warm, dry, no rash. NEURO: No focal deficits. Alert and oriented x3. PSYCH: Normal mood and affect. Course Course Emergency Course: Improving with Toradol and Valium. Discharge. Vital Signs Vital signs: Vital Signs Temperature 98.3 F 02/09/25 20:27 Pulse Rate 77 02/09/25 20:27 Respiratory Rate 16 02/09/25 20:27 Blood Pressure 160/97 H 02/09/25 20:27 Pulse Oximetry 99 02/09/25 20:27 Temperature 98.3 F 02/09/25 20:27 Pulse Rate 77 02/09/25 20:27 Respiratory Rate 16 02/09/25 20:27 Blood Pressure 160/97 H 02/09/25 20:27 Pulse Oximetry 99 02/09/25 20:27 Medical Decision Making Vital Signs Vital Signs: Vital Signs Temperature 98.3 F 02/09/25 20:27 Pulse Rate 77 02/09/25 20:27 Respiratory Rate 16 02/09/25 20:27 Blood Pressure 160/97 H 02/09/25 20:27 Pulse Oximetry 99 02/09/25 20:27 Temperature 98.3 F 02/09/25 20:27 Pulse Rate 77 02/09/25 20:27 Respiratory Rate 16 02/09/25 20:27 Blood Pressure 160/97 H 02/09/25 20:27 Pulse Oximetry 99 02/09/25 20:27 Discharge Plan Discharge Clinical Impression: Sciatica Patient Disposition: Home Condition: Stable Instructions: Sciatica (ED) Additional Instructions: Please return to the emergency department if you develop severe pain that is not controlled by pain medications or if you are unable to walk because of pain or weakness. Return to the emergency department immediately if you develop fevers, loss of bowel or bladder control (dribbling of urine or having accidents you wouldn't normally have), inability to urinate, numbness of your genital or anal area, or weakness/numbness of your legs or arms as these could all be signs of a serious medical emergency. Patient Language: Sinhala Prescriptions: New hydrocodone-acetaminophen 5-325 mg tablet 1 tablet PO Q6H PRN (Reason: pain) Qty: 14 0RF No Action meloxicam 7.5 mg tablet 7.5 mg PO DAILY PRN (Reason: pain) Qty: 90 1RF cyclobenzaprine 5 mg tablet 5 mg PO TID PRN (Reason: muscle spasm) Qty: 30 0RF Follow-up/Referrals: Kem Meléndez MD [Primary Care Provider] - 1 Week
[2025-02-09 22:01] VITALS: BP 144/88; PULSE 72; RESP 16; TEMP 37; O2SAT 98
== END 2025-02-09 21:56 | disposition home or self-care (01) ==
PROVIDERS: Emergency Provider Emergency Medicine; PCP Family Medicine
DX: M54.31 Sciatica, right side (principal); I10 Essential (primary) hypertension; E78.5 Hyperlipidemia, unspecified; K21.9 Gastro-esophageal reflux disease without esophagitis; Z87.442 Personal history of urinary calculi; Z87.891 Personal history of nicotine dependence
CPT/HCPCS: 96374; 96375; 99284; J1885; J3360

== ENCOUNTER 2025-04-23 13:08 | Outpatient (CLI) | payer OTHER, SELFPAY ==
--- OUTSIDE RECORDS SUMMARY | 2025-04-23 13:14 | XMS_ITS | Clinical Summary ---
Author Organization [facility] Address [address] [place] [address] Care Team Providers Care Functional Skills Tutor Name Role Phone Kem Meléndez MD Primary Care Provider Mohan Torrez MD Unavailable Armen George MD Unavailable Allergies Active Allergy Reactions Criticality Noted Date Comments Opioids - Morphine Analogues Agitation Low 019 All Opoids medication Medications meloxicam (MOBIC) 7.5 mg tabletIndicatio ns:Osteoarthrit is Take 1 tablet (7.5 mg total) by mouth daily as needed for pain Active lisinopriL (PRINIVIL,ZESTR IL) 10 mg tablet Take 1 tablet (10 mg total) by mouth every morning 5 Active multivitamin tabletIndicatio ns:Vitamin Deficiency Prevention Take 1 tablet by mouth every morning Active diphenhydrAMINE 25 mg capsule Take 1 tablet/capsul e (25 mg total) by mouth every 6 (six) hours as needed for itching or allergies Active cyclobenzaprine (FLEXERIL) 5 mg tablet Take 1 tablet (5 mg total) by mouth 3 (three) times a day as needed 0 5 04/14/20 25 Discontinu ed(Therapy completed) Active Problems Problem Noted Date Diagnosed Date Prostate cancer 11/10/2024 Cancer Staging:Clinical stage from 11/04/2024:Stage IIB(cT1c, cN0, cM0, PSA: 7.3, Grade Group: 2) - Signed by Mohan Torrez MD on 04/14/2025 Elevated PSA 09/14/2024 Encounters Date Type Department Care Team Description 04/15/2025 9:30 AM CDT Pre-Admission Testing [facility] Pre Anesthesia Testing [address] [place] [address] 04/14/2025 9:45 AM CDT Consult [facility] Radiation Oncology [facility] [place] [address] Mohan Torrez MD Prostate cancer (HCC) (Primary Dx) 04/01/2025 2:20 PM CDT Office Visit [facility] Urology [address] [facility] Medical Office [address] [place] [address] Armen George MD Malignant neoplasm of prostate (HCC) (Primary Dx) from Last 3 Months Surgical History Surgery Date Site/Laterality Comments BACK SURGERY 07/29/1993 - 07/28/1994 L5 decompression COLONOSCOPY next 10/20/2024 PROSTATE BIOPSY SINUS SURGERY Medical History Medical History Date Comments Sleep apnea HTN (hypertension) HLD (hyperlipidemia) Family History Medical History Relation Name Comments [...] Types Packs/Day Years Used Date Smoking Tobacco: Former Cigarettes 0.1 50.7 S tarted: 1975 Cigars Smokeless Tobacco: Never Tobacco Cessation:Counseling Given: Not Answered Alcohol Use Standard Drinks/Week Comments Not Currently 0 (1 standard drink = 0.6 oz pur e alcohol) AUDIT-C Answer Date Recorded Q1: How often do you have a drink containing alcohol? Never 04/15/2025 Q2: How many drinks containi ng alcohol do you have on a typical day when you are drinking? Patient does not drink Q3: How often do you have si x or more drinks on one occasion? Never 04/15/2025 Personal Safety Answer Date Recorded Have you ever been in or are you currently in a harmful physical or emotional relationship or is someone making you feel afraid or unsafe? 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 Not on file Obstetrics History Last Filed Vital Signs Vital Sign Reading Time Taken Comments Blood Pressure 145/90 04/14/2025 9:35 AM CDT Pulse 62 04/14/2025 9:35 AM CDT Temperature 36.6 C (97.8 F) 04/14/2025 9:35 AM CDT Respiratory Rate 18 04/14/2025 9:35 AM CDT Oxygen Saturation 100% 04/14/2025 9:35 AM CDT Inhaled Oxygen Concentration - - Weight 83.9 kg (185 lb) 04/15/2025 9:31 AM CDT Height 182.9 cm (6') 04/15/2025 9:31 AM CDT Body Mass Index 25.09 04/15/2025 9:31 AM CDT Plan of Treatment Upcoming Encounters Date Type Department Care Team (Latest Contact Info) Description 04/26/2025 1:30 PM CDT Hospital Encounter [facility] Operating Room [address] [place] [address] Armen George MD [address] [place] [address] 04/26/2025 1:30 PM CDT Anesthesia Event [facility] Operating Room [address] [place] [address] Betty Razo NP [address] [place] [address] 04/26/2025 1:30 PM CDT - 04/26/2025 3:00 PM CDT Surgery [facility] Operating Room [address] [place] [address] Armen George MD [address] [place] [address] Placement of Prostate Fiducial Marker and Barrigel Spacer Scheduled Procedures Name Priority Associated Diagnoses Date/Ti me PLACEMENT PROSTATE MARKER Prostate cancer (HCC) 04/26/2025 1:30 PM CDT Health Maintenance Due Date Last Done Comments Colon Cancer Screening-Colonoscopy 1954 Depression Screening 1954 Hepatitis C Screening 1954 Prostate Cancer Screening-PSA 1954 Hepatitis B Screening 1972 Abdominal Aortic Aneurysm (A AA) Screen 2019 Well Visit 65+ 2019 Pneumococcal vaccine 65+ (2 of 2 - PCV) 05/02/2021 05/02/2020, 04/01/2020 Influenza Vaccine (#1) 2025 1, 05/02/2020, 04/01/2020, Additional history exists Fall Risk Assessment 04/15/2026 04/15/2025 DTaP/Tdap/Td Vaccine (3 - Td or Tdap) 06/01/2030 06/01/2020, 11/17/2016 Zoster Vaccine Completed 06/01/2020, 04/01/2020 Insurance [facility] Care Teams Functional Skills Tutor Relationship Specialty Start Date End Date Kem Meléndez MD [address] [place], [place] [id number] PCP - General Family Medicine 10/11/20 Mohan Torrez MD [address] [place] [address] Consulting Physician Radiation Oncology 11/06/24 Armen George MD [address] [place] [address] Consulting Physician Surgery 11/06/24
[2025-04-23 13:46] LABS: Hematocrit 40.0 % (42.0-52.0); Hemoglobin 13.5 g/dL (14.0-18.0); Mean Corpuscular HGB Conc 33.8 g/dl (32-36); Mean Corpuscular Hemoglobin 30.5 pg (26-34); Mean Corpuscular Volume 90.3 fl (80-100); Platelet Count Result 225 k/mm3 (150-375); Red Blood Count 4.43 M/mm3 (4.6-6.20); White Blood Count 6.5 K/mm3 (4.5-10.0)
[2025-04-23 13:54] LABS: Hemoglobin A1C 5.3 % (<5.7)
[2025-04-23 13:59] LABS: Add Urine Microscopic? YES; Appearance Urine Cloudy (Clear); Glucose Urine UA Negative (Negative); Leukocyte Esterase Ur Trace LEU/UL (Negative); Nitrate Urine Negative (Negative); Non Pathogenic Casts 0-2; Specific Grav Ur 1.025 (1.001-1.035)
[2025-04-23 14:06] LABS: Alanine Aminotransferase 22 U/L (6-50); Albumin Level 4.1 g/dL (3.5-5.1); Alkaline Phosphatase 80 U/L (38-126); Anion Gap 5 mmol/L (4-12); Aspartate Amino Transferase 26 U/L (17-59); Bilirubin,Total 0.2 mg/dL (0.2-1.3); Blood Urea Nitrogen 17 mg/dL (9-20); Calcium 8.8 mg/dL (8.4-10.2); Carbon Dioxide 28 mmol/L (22-30); Chloride 105 mmol/L (98-107); Cholesterol 182 mg/dL (0-200); Estimated Glomerular Filt Rate > 60; Glucose 156 mg/dL (65-110); HDL Direct 52 mg/dL; Potassium 3.8 mmol/L (3.4-5.0); Sodium 138 mmol/L (137-145); Total Protein 6.6 g/dL (6.3-8.2); Triglycerides 215 mg/dL (<150)
[2025-04-23 14:41] LABS: Thyroid Stimulating Hormone 1.590 uIU/mL (0.465-4.680)
== END 2025-04-23 13:09 | disposition home or self-care (01) ==
LOC: ANHLAB 13:09
PROVIDERS: PCP Family Medicine; Visit Provider Physician Assistant
DX: E78.5 Hyperlipidemia, unspecified (principal); I10 Essential (primary) hypertension; R73.01 Impaired fasting glucose; K21.9 Gastro-esophageal reflux disease without esophagitis; Z86.0100 Personal history of colon polyps, unspecified; Z00.00 Encounter for general adult medical examination without abnormal findings
CPT/HCPCS: 36415; 80053; 80061; 81001; 83036; 84443; 85027

== ENCOUNTER 2025-05-05 08:00 | Outpatient (CLI) | payer OTHER, SELFPAY ==
--- NOTE | ~2025-05-05 | MR_ITS ---
EXAMINATION: MR lumbar spine wo con DATE: 05/05/2025 08:36 INDICATION: Other specified post procedural states. TECHNIQUE: Magnetic resonance imaging (MRI) of the lumbar spine was performed without intravenous contrast. Sequences included sagittal T2-weighted FSE, sagittal T2-weighted FS FSE, sagittal T1-weighted FSE, and axial T2-weighted FSE. COMPARISON: Lumbar spine radiographs 02/05/2025 FINDINGS: There is 7 degrees levocurvature of lumbar spine. There is mild chronic anterior wedging of L1 vertebral body. There is mildly decreased disc height at L2-L3, moderately decreased disc height at L3-L4, mildly decreased disc height at L4-L5, and severely decreased disc height at L5-S1. The distal spinal cord signal intensity is normal. The conus medullaris is at T12-L1. The following disc levels are specifically discussed: L1-L2: The disc is bulging with superimposed left foraminal extrusion. There is moderate bilateral facet joint osteoarthritis. There is mild bilateral neural foraminal stenosis. There is no central canal stenosis. L2-L3: The disc is bulging and has an annular fissure. There is mild bilateral facet joint osteoarthritis. There is mild bilateral neural foraminal stenosis. There is mild central canal stenosis. L3-L4: The disc is bulging with superimposed right foraminal extrusion. There is mild bilateral facet joint osteoarthritis. There is moderate right and mild left neural foraminal stenosis. There is mild central canal stenosis. L4-L5: The disc is bulging and has an annular fissure. There is mild bilateral facet joint osteoarthritis. There is mild right and moderate left neural foraminal stenosis. There is mild central canal stenosis. There is moderate stenosis of left lateral recess. L5-S1: The disc is bulging and has an annular fissure. There is moderate bilateral facet joint osteoarthritis. There is mild right and moderate left neural foraminal stenosis. There is mild central canal stenosis. There is posterior decompression. IMPRESSION: 1. Severe lumbar spondylosis. Reviewed, dictated and finalized at location E.
== END 2025-05-05 08:01 | disposition home or self-care (01) ==
PROVIDERS: PCP Family Medicine; Visit Provider Physician Assistant
DX: M47.816 Spondylosis without myelopathy or radiculopathy, lumbar region (principal); R29.898 Other symptoms and signs involving the musculoskeletal system; S39.92XA Unspecified injury of lower back, initial encounter; X58.XXXA Exposure to other specified factors, initial encounter; Z98.890 Other specified postprocedural states
CPT/HCPCS: 72148